=== PATIENT | female | born 1940 | race Caucasian/White ===

== ENCOUNTER 2016-09-07 07:20 | Emergency (ER) | payer MEDICARE, BC ==
[2016-09-07 07:47] VITALS: BP 147/98
--- NOTE | 2016-09-07 08:08 | EDM.PDOC ---
ED HISTORY OF PRESENT ILLNESS - General Chief Complaint: Neurological Problem Stated Complaint: DIZZY Time Seen by Provider: 09/07/16 08:03 Source: Reports: Patient, Family, RN notes reviewed History Limitations: Reports: No limitations - History of Present Illness INITIAL COMMENTS - FREE TEXT/NARRATIVE: 75-year-old female presents with Complains of dizziness described as spinning associated with nausea, started yesterday morning. Denies diplopia, dysarthria, difficulty swallowing, weakness. Surgery in [address] 3 days ago involving laminectomy L2-3 disc right by patient No fever sweats or chills 10 days ago started on gabapentin 100 mg 3 times daily Symptom Onset Date: 09/06/16 Severity: moderate Worsens with: Reports: Other (Worsens with change of position) - Related Data Allergies/ADRs: Allergies Allergy/AdvReac Type Severity Reaction Status Date / Time oxycodone HCl [From Roxicet] Allergy Severe Difficulty Verified 09/07/16 07:36 Breathing acetaminophen [From Roxicet] Allergy Shortness Verified 09/07/16 07:36 of Breath amlodipine besylate Allergy Pain Verified 09/07/16 07:36 [From Norvasc] hydromorphone [From Dilaudid] Allergy Swelling Verified 09/07/16 07:36 oxycodone [From Roxicet] Allergy Shortness Verified 09/07/16 07:36 of Breath propranolol HCl Allergy Shortness Verified 09/07/16 07:36 [From Inderal LA] of Breath quinidine Allergy Rash Verified 09/07/16 07:36 verapamil Allergy Ringing in Verified 09/07/16 07:36 the Ears amoxicillin [Amoxicillin] AdvReac Nausea Verified 09/07/16 07:36 ibuprofen AdvReac Anxiety Verified 09/07/16 07:36 lisinopril AdvReac Pain Verified 09/07/16 07:36 omeprazole AdvReac Diarrhea Verified 09/07/16 07:36 tramadol AdvReac Anxiety Verified 09/07/16 07:36 magnesium stearate Allergy Severe Difficulty Uncoded 09/07/16 07:36 Breathing cats Allergy Blurred Uncoded 09/07/16 07:36 Vision orange juice Allergy Diarrhea Uncoded 09/07/16 07:36 Home Meds: Home Meds Acetaminophen [Tylenol] 650 mg PO TID 07/15/16 [History] Morphine [Morphine 10 MG/5 ML] 2.5 ml PO QID 07/15/16 [History] Furosemide [Lasix Oral Soln] 09/07/16 [History] Gabapentin [Gabapentin] 09/07/16 [History] Past Medical History HEENT History: Reports: Hard of hearing, Impaired vision, Macular degeneration Cardiovascular History: Reports: Hypertension Respiratory History: Reports: None Gastrointestinal History: Reports: GERD, Irritable bowel syndrome Genitourinary History: Reports: Renal calculus Other Genitourinary History: kidney cancer [employer]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 OB/BYN History: uterine cancer Musculoskeletal History: Reports: Back pain, chronic Neurological History: Reports: None Psychiatric History: Reports: None Endocrine/Metabolic History: Reports: None Hematologic History: Reports: None Immunologic History: Reports: None Oncologic (Cancer) History: Reports: Uterine, Other (see below) Other Oncologic History: KIDNEY CANCER Dermatologic History: Reports: Cellulitis, Other (see below) Other Dermatologic History: cellulitis left leg - Infectious Disease History Infectious Disease History: Reports: Chicken pox, Measles, Mumps, Rubella, Shingles - Past Surgical History GI Surgical History: Reports: Cholecystectomy, Colonoscopy Female Surgical History: Reports: Hysterectomy Social & Family History - Family History HEENT: Reports: Cataract, Glaucoma, Impaired vision, Macular degeneration Cardiac: Reports: CAD, Hypertension, [place], Pacemaker Respiratory: Reports: None GI: Reports: GERD : Reports: None OBGYN: Reports: None Musculoskeletal: Reports: None Neurological: Reports: CVA Psychiatric: Reports: None Endocrine/Metabolic: Reports: Diabetes, type II Hematologic: Reports: None Immunologic: Reports: None Dermatologic: Reports: None Oncologic: Reports: Colon, Uterine - Tobacco Use Smoking Status *Q: Never Smoker Second Hand Smoke Exposure: No - Caffeine Use Caffeine Use: Reports: None - Alcohol Use Days Per Week of Alcohol Use: 0 - Recreational Drug Use Recreational Drug Use: No ED ROS GENERAL - Review of Systems Review Of Systems: See Below Constitutional: Reports: no symptoms HEENT: Reports: Vertigo, Other (History of chronic tinnitus) Respiratory: Reports: no symptoms Cardiovascular: Reports: No symptoms Endocrine: Reports: no symptoms GI/Abdominal: Reports: No symptoms : Reports: no symptoms Musculoskeletal: Reports: leg pain Skin: Reports: dryness Neurological: Reports: dizziness Psychiatric: Reports: No symptoms ED EXAM, GENERAL - Physical Exam Exam: See Below Exam Limited By: No limitations General Appearance: alert, WD/WN, no apparent distress Eye Exam: bilateral eye: EOMI, other (Pupils small round react to light, no nystagmus) Ears: normal external exam, other (Patient has chronic left tympanic membrane perforation) Ear Exam: right ear: TM normal, left ear: TM perforation, bilateral ear: auricle normal, canal normal Nose: normal inspection Throat/Mouth: Normal inspection, Normal lips, Normal gums, Normal oropharynx, Normal voice, No airway compromise Head: atraumatic Neck: normal inspection, supple, non-tender Respiratory/Chest: no respiratory distress, lungs clear, normal breath sounds Cardiovascular: regular rate, rhythm Extremities: pedal edema Neurological: alert, oriented, CN II-XII intact, normal cognition Psychiatric: normal affect, normal mood Skin Exam: Warm, Dry, Intact, Normal color Lymphatic: no adenopathy Course - Vital Signs Text/Narrative:: Reviewed CBC and BMP, no significant abnormality. Diagnosis acute vertigo, differential diagnosis includes adverse affect from gabapentin, benign positional paroxysmal vertigo, doubt Mnire's disease, doubt acute labyrinthitis, or vestibular neuronitis. Discussed with patient and , discontinue gabapentin, cut morphine dose by 25%. Followup with Dr. Munson next week. Last Recorded V/S: Last Vital Signs Temp 98.1 F 09/07/16 07:46 Pulse 103 H 09/07/16 07:46 Resp 14 09/07/16 07:46 BP 147/98 H 09/07/16 07:46 Pulse Ox 96 09/07/16 07:46 - Orders/Labs/Meds Labs: Laboratory Tests 09/07/16 09/07/16 Range/Units 08:16 08:16 WBC 11.4 H (4.5-11.0) K/uL RBC 4.69 (3.30-5.50) M/uL Hgb 13.0 (12.0-15.0) g/dL Hct 41.7 (36.0-48.0) % MCV 89 (80-98) fL MCH 28 (27-31) pg MCHC 31 L (32-36) % Plt Count 222 (150-400) K/uL Neut % (Auto) 78 H (36-66) % Lymph % (Auto) 12 L (24-44) % [place] % (Auto) 9 H (2-6) % Eos % (Auto) 2 (2-4) % Baso % (Auto) 0 (0-1) % Sodium 143 (140-148) mmol/L Potassium 4.0 (3.6-5.2) mmol/L Chloride 107 (100-108) mmol/L Carbon Dioxide 28 (21-32) mmol/L Anion Gap 7.8 (5.0-14.0) mmol/L BUN 17 (7-18) mg/dL Creatinine 1.0 (0.6-1.0) mg/dL Est Cr Clr Drug Dosing 38.44 mL/min Estimated GFR (MDRD) 54 L (>60) Glucose 196 H (74-106) mg/dL Calcium 8.8 (8.5-10.1) mg/dL Departure - Departure Time of Disposition: 08:46 Disposition: Home, Self-Care 01 Condition: good Clinical Impression: Vertigo Forms: ED Department Discharge Additional Instructions: Stop gabapentin. Decreased morphine dose by 25%. C. Dr. Munson next week.
== END 2016-09-07 09:14 | disposition home or self-care (01) ==
LOC: JP.ED 07:20
DX: R42 Dizziness and giddiness (principal); H54.7 Unspecified visual loss; Z88.5 Allergy status to narcotic agent; Z79.899 Other long term (current) drug therapy; Z88.8 Allergy status to other drugs, medicaments and biological substances; Z90.710 Acquired absence of both cervix and uterus
CPT/HCPCS: 36415; 80048; 85025; 99283; 99284

== ENCOUNTER 2017-07-24 17:03 | Inpatient (IN) | payer MEDICARE, BC ==
--- NOTE | 2017-07-24 17:39 | EDM.PDOC ---
ED HPI GENERAL MEDICAL PROBLEM - General Chief Complaint: Respiratory Problem Stated Complaint: MEDICAL Time Seen by Provider: 07/24/17 17:34 Source of Information: Reports: Patient History Limitations: Reports: No Limitations - History of Present Illness INITIAL COMMENTS - FREE TEXT/NARRATIVE: pt arrived with increased sob. She states this afternoon this became very severe. She had surgery in Jul on her back-- She was actually discharged on Jul !. She developed a staph infection on her back and was placed on antibiotics. She then developd cdiff and is still on vanomycin for that. In the last few days she has had increased sob. She has markedly swollen legs and the are weeping. She is not on any blood thinners. Onset: Gradual Duration: Day(s):, Getting Worse Location: Reports: Chest Associated Symptoms: Reports: Cough, Loss of Appetite, Shortness of Breath, Other ( She has coughed up some blood. ) Left Lower Back Pain Score (Numeric/FACES): 5 - Related Data Allergies Allergy/AdvReac Type Severity Reaction Status Date / Time oxycodone HCl [From Roxicet] Allergy Severe Difficulty Verified 09/07/16 07:36 Breathing acetaminophen [From Roxicet] Allergy Shortness Verified 09/07/16 07:36 of Breath amlodipine besylate Allergy Pain Verified 09/07/16 07:36 [From Norvasc] hydromorphone [From Dilaudid] Allergy Swelling Verified 09/07/16 07:36 oxycodone [From Roxicet] Allergy Shortness Verified 09/07/16 07:36 of Breath propranolol HCl Allergy Shortness Verified 09/07/16 07:36 [From Inderal LA] of Breath quinidine Allergy Rash Verified 09/07/16 07:36 verapamil Allergy Ringing in Verified 09/07/16 07:36 the Ears amoxicillin [Amoxicillin] AdvReac Nausea Verified 09/07/16 07:36 ibuprofen AdvReac Anxiety Verified 09/07/16 07:36 lisinopril AdvReac Pain Verified 09/07/16 07:36 omeprazole AdvReac Diarrhea Verified 09/07/16 07:36 tramadol AdvReac Anxiety Verified 09/07/16 07:36 magnesium stearate Allergy Severe Difficulty Uncoded 09/07/16 07:36 Breathing cats Allergy Blurred Uncoded 09/07/16 07:36 Vision orange juice Allergy Diarrhea Uncoded 09/07/16 07:36 Home Meds: Home Meds Acetaminophen [Tylenol] 650 mg PO TID 07/15/16 [History] Morphine [Morphine 10 MG/5 ML] 2.5 ml PO QID 07/15/16 [History] Vancomycin 250 mg PO QID 07/24/17 [History] Past Medical History HEENT History: Reports: Hard of Hearing, Impaired Vision, Macular Degeneration Cardiovascular History: Reports: Hypertension Respiratory History: Reports: None Gastrointestinal History: Reports: GERD, Irritable Bowel Syndrome Genitourinary History: Reports: Renal Calculus Other Genitourinary History: 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 OB/BYN History: uterine cancer Musculoskeletal History: Reports: Back Pain, Chronic Neurological History: Reports: None Psychiatric History: Reports: None Endocrine/Metabolic History: Reports: None Hematologic History: Reports: None Immunologic History: Reports: None Oncologic (Cancer) History: Reports: Uterine, Other (See Below) Other Oncologic History: KIDNEY CANCER Dermatologic History: Reports: Cellulitis, Other (See Below) Other Dermatologic History: cellulitis left leg - Infectious Disease History Infectious Disease History: Reports: Chicken Pox, Measles, Mumps - Past Surgical History Musculoskeletal Surgical History: Reports: Other (See Below) Other Musculoskeletal Surgeries/Procedures:: back surgery on 06/05/17 in [facility] Social & Family History - Family History HEENT: Reports: Cataract, Glaucoma, Impaired Vision, Macular Degeneration Cardiac: Reports: CAD, Hypertension, [place], Pacemaker Respiratory: Reports: None GI: Reports: GERD : Reports: None OBGYN: Reports: None Musculoskeletal: Reports: None Neurological: Reports: CVA Psychiatric: Reports: None Endocrine/Metabolic: Reports: Diabetes, type II Hematologic: Reports: None Immunologic: Reports: None Dermatologic: Reports: None Oncologic: Reports: Colon, Uterine - Tobacco Use Smoking Status *Q: Never Smoker Second Hand Smoke Exposure: No - Caffeine Use Caffeine Use: Reports: Soda - Alcohol Use Days Per Week of Alcohol Use: 0 - Recreational Drug Use Recreational Drug Use: No ED ROS GENERAL - Review of Systems Review Of Systems: See Below Constitutional: Reports: No Symptoms HEENT: Reports: No Symptoms Respiratory: Reports: Shortness of Breath, Other (Pt has had marked sob. It was much worse today. ) Cardiovascular: Reports: No Symptoms, Dyspnea on Exertion, Edema Endocrine: Reports: No Symptoms GI/Abdominal: Reports: No Symptoms : Reports: No Symptoms Musculoskeletal: Reports: No Symptoms Skin: Reports: No Symptoms ED EXAM, GENERAL - Physical Exam Exam: See Below Free Text/Narrative:: pt arrived with increased sob. She has marked swelling of her ankles and she has weeping. She presently has Cdiff. Exam Limited By: No Limitations General Appearance: Alert, Anxious, Mild Distress Ears: Normal TMs Nose: Normal Inspection Throat/Mouth: Normal Inspection Head: Atraumatic Neck: Normal Inspection Respiratory/Chest: Decreased Breath Sounds, Rales Cardiovascular: Regular Rate, Rhythm GI/Abdominal: Soft, Non-Tender Extremities: Pedal Edema, Other ( Pt ratliff weeping in both legs. ) Neurological: Alert, Oriented, Normal Cognition Course - Vital Signs Last Recorded V/S: Last Vital Signs Temp 36.3 C 07/24/17 17:08 Pulse 105 H 07/24/17 17:37 Resp 24 H 07/24/17 17:37 BP 185/116 H 07/24/17 17:37 Pulse Ox 98 07/24/17 17:37 - Orders/Labs/Meds Orders: Active Orders 24 hr Category Date Time Status Chest 1V Frontal [CR] Stat Exams 07/24/17 17:33 Taken CLOSTRIDIUM DIFFICILE BY PCR [RM] Stat Lab 07/24/17 17:32 Uncollected CRP [C-REACTIVE PROTEIN] [CHEM] Stat Lab 07/24/17 17:25 Received CULTURE URINE [RM] Stat Lab 07/24/17 18:21 Uncollected LACTIC ACID [CHEM] Stat Lab 07/24/17 17:25 Received PRO B-TYPE NATRIUR PEPT,BNPPRO [CHEM] Urgent Lab 07/24/17 17:58 Ordered Sodium Chloride 0.9% [Saline Flush] Med 07/24/17 18:01 Active 10 ml FLUSH ASDIRECTED PRN Saline Lock Insert [OM.PC] Routine Oth 07/24/17 18:01 Ordered Medication Orders Sodium Chloride (Saline Flush) 10 ml FLUSH ASDIRECTED PRN PRN Reason: Keep Vein Open Labs: Laboratory Tests 07/24/17 07/24/17 07/24/17 Range/Units 17:25 17:25 18:02 WBC 8.7 (4.5-11.0) K/uL RBC 3.84 (3.30-5.50) M/uL Hgb 10.3 L D (12.0-15.0) g/dL Hct 35.0 L (36.0-48.0) % MCV 91 (80-98) fL MCH 27 (27-31) pg MCHC 29 L (32-36) % Plt Count 172 (150-400) K/uL Neut % (Auto) 73 H (36-66) % Lymph % (Auto) 16 L (24-44) % [place] % (Auto) 8 H (2-6) % Eos % (Auto) 3 (2-4) % Baso % (Auto) 0 (0-1) % Sodium 149 H (140-148) mmol/L Potassium 4.1 (3.6-5.2) mmol/L Chloride 112 H (100-108) mmol/L Carbon Dioxide 29 (21-32) mmol/L Anion Gap 12.1 (5.0-14.0) mmol/L BUN 23 H (7-18) mg/dL Creatinine 1.2 H (0.6-1.0) mg/dL Est Cr Clr Drug Dosing 34.44 mL/min Estimated GFR (MDRD) 44 L (>60) Glucose 116 H (74-106) mg/dL Calcium 9.1 (8.5-10.1) mg/dL Total Bilirubin 0.7 D (0.2-1.0) mg/dL AST 37 D (15-37) U/L ALT 44 D (12-78) U/L Alkaline Phosphatase 173 H D (46-116) U/L Troponin I 0.035 (0.000-0.056) ng/mL Total Protein 6.5 (6.4-8.2) g/dL Albumin 2.6 L (3.4-5.0) g/dL Globulin 3.9 H (2.3-3.5) g/dL Albumin/Globulin Ratio 0.7 L (1.2-2.2) Urine Color Urine Appearance Urine pH (4.5-8.0) Ur Specific [place] (1.008-1.030) Urine Protein (NEGATIVE) mg/dL Urine Glucose (UA) (NEGATIVE) mg/dL Urine Ketones (NEGATIVE) mg/dL Urine Occult Blood (NEGATIVE) Urine Nitrite (NEGATIVE) Urine Bilirubin (NEGATIVE) Urine Urobilinogen (NORMAL) mg/dL Ur Leukocyte Esterase (NEGATIVE) Urine RBC (0-5) Urine WBC (0-5) Ur Epithelial Cells Amorphous Sediment Urine Bacteria Urine Mucus 07/24/17 Range/Units 18:15 WBC (4.5-11.0) K/uL RBC (3.30-5.50) M/uL Hgb (12.0-15.0) g/dL Hct (36.0-48.0) % MCV (80-98) fL MCH (27-31) pg MCHC (32-36) % Plt Count (150-400) K/uL Neut % (Auto) (36-66) % Lymph % (Auto) (24-44) % [place] % (Auto) (2-6) % Eos % (Auto) (2-4) % Baso % (Auto) (0-1) % Sodium (140-148) mmol/L Potassium (3.6-5.2) mmol/L Chloride (100-108) mmol/L Carbon Dioxide (21-32) mmol/L Anion Gap (5.0-14.0) mmol/L BUN (7-18) mg/dL Creatinine (0.6-1.0) mg/dL Est Cr Clr Drug Dosing mL/min Estimated GFR (MDRD) (>60) Glucose (74-106) mg/dL Calcium (8.5-10.1) mg/dL Total Bilirubin (0.2-1.0) mg/dL AST (15-37) U/L ALT (12-78) U/L Alkaline Phosphatase (46-116) U/L Troponin I (0.000-0.056) ng/mL Total Protein (6.4-8.2) g/dL Albumin (3.4-5.0) g/dL Globulin (2.3-3.5) g/dL Albumin/Globulin Ratio (1.2-2.2) Urine Color Yellow Urine Appearance Slightly cloudy Urine pH 5.0 (4.5-8.0) Ur Specific [place] 1.020 (1.008-1.030) Urine Protein 100 H (NEGATIVE) mg/dL Urine Glucose (UA) Normal (NEGATIVE) mg/dL Urine Ketones Negative (NEGATIVE) mg/dL Urine Occult Blood Large (NEGATIVE) Urine Nitrite Negative (NEGATIVE) Urine Bilirubin Negative (NEGATIVE) Urine Urobilinogen Normal (NORMAL) mg/dL Ur Leukocyte Esterase Small (NEGATIVE) Urine RBC 10-20 H (0-5) Urine WBC 5-10 H (0-5) Ur Epithelial Cells Few Amorphous Sediment Few Urine Bacteria Moderate Urine Mucus Few Meds: Medications Generic Name Dose Route Start Last Admin Trade Name Freq PRN Reason Stop Dose Admin Sodium Chloride 10 ml 07/24/17 18:01 Saline Flush FLUSH ASDIRECTED PRN Keep Vein Open Discontinued Medications Generic Name Dose Route Start Last Admin Trade Name Freq PRN Reason Stop Dose Admin Furosemide 60 mg 07/24/17 18:01 Lasix IVPUSH 07/24/17 18:02 ONETIME ONE - Re-Assessments/Exams Free Text/Narrative Re-Assessment/Exam: 07/24/17 18:22 CHEST XRAY LOOKED LIKE THE PT HAD SOME PULMONARY EDEMA. sHE WAS GIVEN LASIX 60 MG IV. hER URINE LOOKED INFECTED AND THAT WAS CULTURED. 07/24/17 18:23 Departure - Departure Time of Disposition: 18:24 Disposition: Admitted As Inpatient 66 Condition: Fair Clinical Impression: Clostridium difficile diarrhea, CHF (congestive heart failure) - Discharge Information Referrals: PCP,None [Primary Care Provider] - Forms: ED Department Discharge Care Plan Goals: ADMIT TO [facility] - My Orders Last 24 Hours: My Active Orders 07/24/17 17:25 CRP [C-REACTIVE PROTEIN] [CHEM] Stat LACTIC ACID [CHEM] Stat 07/24/17 17:32 CLOSTRIDIUM DIFFICILE BY PCR [RM] Stat 07/24/17 17:33 Chest 1V Frontal [CR] Stat 07/24/17 17:58 PRO B-TYPE NATRIUR PEPT,BNPPRO [CHEM] Urgent 07/24/17 18:01 Sodium Chloride 0.9% [Saline Flush] 10 ml FLUSH ASDIRECTED PRN Saline Lock Insert [OM.PC] Routine 07/24/17 18:21 CULTURE URINE [RM] Stat - Assessment/Plan Last 24 Hours: My Active Orders 07/24/17 17:25 CRP [C-REACTIVE PROTEIN] [CHEM] Stat LACTIC ACID [CHEM] Stat 07/24/17 17:32 CLOSTRIDIUM DIFFICILE BY PCR [RM] Stat 07/24/17 17:33 Chest 1V Frontal [CR] Stat 07/24/17 17:58 PRO B-TYPE NATRIUR PEPT,BNPPRO [CHEM] Urgent 07/24/17 18:01 Sodium Chloride 0.9% [Saline Flush] 10 ml FLUSH ASDIRECTED PRN Saline Lock Insert [OM.PC] Routine 07/24/17 18:21 CULTURE URINE [RM] Stat
[2017-07-24] MEDS ORDERED: Sodium Chloride 0.9% 10 ML Syringe FLUSH PRN (18:01)
[2017-07-24] MEDS ORDERED: Furosemide 40 MG/4 ML VIAL IVPUSH ONE (18:01)
--- NOTE | 2017-07-24 19:29 | PCM.HP ---
H&P History of Present Illness - General Date of Service: 07/24/17 Admit Problem/Dx: Admission Diagnosis/Problem Admission Diagnosis/Problem CHF, Congestive heart failure Source of Information: Patient, Family, Provider History Limitations: Reports: No Limitations - History of Present Illness Initial Comments - Free Text/Narative: Anne presents to the emergency room today with progressive shortness of breath. Symptoms have been present for a couple of weeks but have been much worse the past 2 days. She is short of breath with any activity. She has noticed increasing orthopnea over the past week or so. She has not experienced PND. Her legs have been more and more swollen over the past 2-3 weeks. She's not aware of any fevers and has not had much of a cough. No reports of chest pain or chest tightness. She does note that she was taken off furosemide because of dehydration about 3 weeks ago. She is being treated for Clostridium difficile infection and continues to have some diarrhea although it's been slowly getting better. No complaints of abdominal pain. Workup in the emergency room was suggestive of congestive heart failure with pulmonary edema noted on chest x-ray as well as a significantly elevated BNP. Clinical examination also consistent with congestive heart failure. She will be admitted for further management. Left Lower Back Pain Score (Numeric/FACES): 5 - Related Data Allergies/Adverse Reactions: Allergies Allergy/AdvReac Type Severity Reaction Status Date / Time oxycodone HCl [From Roxicet] Allergy Severe Difficulty Verified 09/07/16 07:36 Breathing acetaminophen [From Roxicet] Allergy Shortness Verified 09/07/16 07:36 of Breath amlodipine besylate Allergy Pain Verified 09/07/16 07:36 [From Norvasc] hydromorphone [From Dilaudid] Allergy Swelling Verified 09/07/16 07:36 oxycodone [From Roxicet] Allergy Shortness Verified 09/07/16 07:36 of Breath propranolol HCl Allergy Shortness Verified 09/07/16 07:36 [From Inderal LA] of Breath quinidine Allergy Rash Verified 09/07/16 07:36 verapamil Allergy Ringing in Verified 09/07/16 07:36 the Ears amoxicillin [Amoxicillin] AdvReac Nausea Verified 09/07/16 07:36 ibuprofen AdvReac Anxiety Verified 09/07/16 07:36 lisinopril AdvReac Pain Verified 09/07/16 07:36 omeprazole AdvReac Diarrhea Verified 09/07/16 07:36 tramadol AdvReac Anxiety Verified 09/07/16 07:36 magnesium stearate Allergy Severe Difficulty Uncoded 09/07/16 07:36 Breathing cats Allergy Blurred Uncoded 09/07/16 07:36 Vision orange juice Allergy Diarrhea Uncoded 09/07/16 07:36 Home Medications: Home Meds Acetaminophen [Tylenol] 650 mg PO TID 07/15/16 [History] Morphine [Morphine 10 MG/5 ML] 2.5 ml PO QID 07/15/16 [History] Vancomycin 250 mg PO QID 07/24/17 [History] Past Medical History HEENT History: Reports: Hard of Hearing, Impaired Vision, Macular Degeneration Cardiovascular History: Reports: Hypertension Respiratory History: Reports: None Gastrointestinal History: Reports: GERD, Irritable Bowel Syndrome Genitourinary History: Reports: Renal Calculus Other Genitourinary History: kidney 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 OB/BYN History: uterine cancer Musculoskeletal History: Reports: Back Pain, Chronic Neurological History: Reports: None Psychiatric History: Reports: None Endocrine/Metabolic History: Reports: None Hematologic History: Reports: None Immunologic History: Reports: None Oncologic (Cancer) History: Reports: Uterine, Other (See Below) Other Oncologic History: KIDNEY CANCER Dermatologic History: Reports: Cellulitis, Other (See Below) Other Dermatologic History: cellulitis left leg - Infectious Disease History Infectious Disease History: Reports: Chicken Pox, Measles, Mumps - Past Surgical History Musculoskeletal Surgical History: Reports: Other (See Below) Other Musculoskeletal Surgeries/Procedures:: back surgery on 06/05/17 in [facility] Social & Family History - Family History HEENT: Reports: Cataract, Glaucoma, Impaired Vision, Macular Degeneration Cardiac: Reports: CAD, Hypertension, DE, Pacemaker Respiratory: Reports: None GI: Reports: GERD : Reports: None OBGYN: Reports: None Musculoskeletal: Reports: None Neurological: Reports: CVA Psychiatric: Reports: None Endocrine/Metabolic: Reports: Diabetes, type II Hematologic: Reports: None Immunologic: Reports: None Dermatologic: Reports: None Oncologic: Reports: Colon, Uterine - Tobacco Use Smoking Status *Q: Never Smoker Second Hand Smoke Exposure: No - Caffeine Use Caffeine Use: Reports: Soda - Alcohol Use Days Per Week of Alcohol Use: 0 - Recreational Drug Use Recreational Drug Use: No H&P Review of Systems - Review of Systems: Review Of Systems: See Below Free Text/Narrative: A complete 12 point review of systems was obtained. Pertinent positives and negatives are noted in the history of present illness. All other systems were reviewed and were negative except as noted. Exam - Exam Exam: See Below - Vital Signs Vital Signs: Last Vital Signs Temp 36.3 C 07/24/17 17:08 Pulse 105 H 07/24/17 17:37 Resp 24 H 07/24/17 17:37 BP 177/89 H 07/24/17 18:22 Pulse Ox 98 07/24/17 17:37 Weight: 127.006 kg - Exam Quality Assessment: Supplemental Oxygen General: Alert, Oriented, Cooperative. No: Mild Distress HEENT: Conjunctiva Clear, Mucosa Moist & [place]. No: Scleral Icterus Neck: Supple, Trachea Midline, JVD. No: Lymphadenopathy Lungs: Normal Respiratory Effort, Decreased Breath Sounds (both bases), Crackles (both bases). No: Wheezing Cardiovascular: Regular Rhythm, Tachycardia, Systolic Murmur (diffuse CANDY) GI/Abdominal Exam: Normal Bowel Sounds, Soft, Non-Tender, No Distention Back Exam: Normal Inspection. No: Full Range of Motion Extremities: Pedal Edema (pitting edema both legs to the knee and some posterior edema in the thighs), Other (both legs wrapped with Coban to the knee) . No: Increased Warmth Skin: Warm, Dry. No: Rash Neuro Extensive - Mental Status: Alert, Oriented x3, Nl Response to Commands Neuro Extensive - Motor, Sensory, Reflexes: CN II-XII Intact. No: Dysarthria, Abnormal Motor, Tremor Psychiatric: Alert, Normal Affect - Patient Data Lab Results Last 24 hrs: Laboratory Results - last 24 hr 07/24/17 07/24/17 07/24/17 Range/Units 17:25 17:25 17:25 WBC 8.7 (4.5-11.0) K/uL RBC 3.84 (3.30-5.50) M/uL Hgb 10.3 L D (12.0-15.0) g/dL Hct 35.0 L (36.0-48.0) % MCV 91 (80-98) fL MCH 27 (27-31) pg MCHC 29 L (32-36) % Plt Count 172 (150-400) K/uL Neut % (Auto) 73 H (36-66) % Lymph % (Auto) 16 L (24-44) % [place] % (Auto) 8 H (2-6) % Eos % (Auto) 3 (2-4) % Baso % (Auto) 0 (0-1) % Sodium 149 H (140-148) mmol/L Potassium 4.1 (3.6-5.2) mmol/L Chloride 112 H (100-108) mmol/L Carbon Dioxide 29 (21-32) mmol/L Anion Gap 12.1 (5.0-14.0) mmol/L BUN 23 H (7-18) mg/dL Creatinine 1.2 H (0.6-1.0) mg/dL Est Cr Clr Drug Dosing 34.44 mL/min Estimated GFR (MDRD) 44 L (>60) Glucose 116 H (74-106) mg/dL Lactic Acid 1.4 (0.4-2.0) mmol/L Calcium 9.1 (8.5-10.1) mg/dL Total Bilirubin 0.7 D (0.2-1.0) mg/dL AST 37 D (15-37) U/L ALT 44 D (12-78) U/L Alkaline Phosphatase 173 H D (46-116) U/L Troponin I (0.000-0.056) ng/mL C-Reactive Protein (0.0-0.3) mg/dL NT-Pro-B Natriuret Pep (5-450) pg/mL Total Protein 6.5 (6.4-8.2) g/dL Albumin 2.6 L (3.4-5.0) g/dL Globulin 3.9 H (2.3-3.5) g/dL Albumin/Globulin Ratio 0.7 L (1.2-2.2) Urine Color Urine Appearance Urine pH (4.5-8.0) Ur Specific [place] (1.008-1.030) Urine Protein (NEGATIVE) mg/dL Urine Glucose (UA) (NEGATIVE) mg/dL Urine Ketones (NEGATIVE) mg/dL Urine Occult Blood (NEGATIVE) Urine Nitrite (NEGATIVE) Urine Bilirubin (NEGATIVE) Urine Urobilinogen (NORMAL) mg/dL Ur Leukocyte Esterase (NEGATIVE) Urine RBC (0-5) Urine WBC (0-5) Ur Epithelial Cells Amorphous Sediment Urine Bacteria Urine Mucus 07/24/17 07/24/17 07/24/17 Range/Units 17:25 17:58 18:02 WBC (4.5-11.0) K/uL RBC (3.30-5.50) M/uL Hgb (12.0-15.0) g/dL Hct (36.0-48.0) % MCV (80-98) fL MCH (27-31) pg MCHC (32-36) % Plt Count (150-400) K/uL Neut % (Auto) (36-66) % Lymph % (Auto) (24-44) % [place] % (Auto) (2-6) % Eos % (Auto) (2-4) % Baso % (Auto) (0-1) % Sodium (140-148) mmol/L Potassium (3.6-5.2) mmol/L Chloride (100-108) mmol/L Carbon Dioxide (21-32) mmol/L Anion Gap (5.0-14.0) mmol/L BUN (7-18) mg/dL Creatinine (0.6-1.0) mg/dL Est Cr Clr Drug Dosing mL/min Estimated GFR (MDRD) (>60) Glucose (74-106) mg/dL Lactic Acid (0.4-2.0) mmol/L Calcium (8.5-10.1) mg/dL Total Bilirubin (0.2-1.0) mg/dL AST (15-37) U/L ALT (12-78) U/L Alkaline Phosphatase (46-116) U/L Troponin I 0.035 (0.000-0.056) ng/mL C-Reactive Protein 0.59 H (0.0-0.3) mg/dL NT-Pro-B Natriuret Pep 25733 H (5-450) pg/mL Total Protein (6.4-8.2) g/dL Albumin (3.4-5.0) g/dL Globulin (2.3-3.5) g/dL Albumin/Globulin Ratio (1.2-2.2) Urine Color Urine Appearance Urine pH (4.5-8.0) Ur Specific [place] (1.008-1.030) Urine Protein (NEGATIVE) mg/dL Urine Glucose (UA) (NEGATIVE) mg/dL Urine Ketones (NEGATIVE) mg/dL Urine Occult Blood (NEGATIVE) Urine Nitrite (NEGATIVE) Urine Bilirubin (NEGATIVE) Urine Urobilinogen (NORMAL) mg/dL Ur Leukocyte Esterase (NEGATIVE) Urine RBC (0-5) Urine WBC (0-5) Ur Epithelial Cells Amorphous Sediment Urine Bacteria Urine Mucus 07/24/17 Range/Units 18:15 WBC (4.5-11.0) K/uL RBC (3.30-5.50) M/uL Hgb (12.0-15.0) g/dL Hct (36.0-48.0) % MCV (80-98) fL MCH (27-31) pg MCHC (32-36) % Plt Count (150-400) K/uL Neut % (Auto) (36-66) % Lymph % (Auto) (24-44) % [place] % (Auto) (2-6) % Eos % (Auto) (2-4) % Baso % (Auto) (0-1) % Sodium (140-148) mmol/L Potassium (3.6-5.2) mmol/L Chloride (100-108) mmol/L Carbon Dioxide (21-32) mmol/L Anion Gap (5.0-14.0) mmol/L BUN (7-18) mg/dL Creatinine (0.6-1.0) mg/dL Est Cr Clr Drug Dosing mL/min Estimated GFR (MDRD) (>60) Glucose (74-106) mg/dL Lactic Acid (0.4-2.0) mmol/L Calcium (8.5-10.1) mg/dL Total Bilirubin (0.2-1.0) mg/dL AST (15-37) U/L ALT (12-78) U/L Alkaline Phosphatase (46-116) U/L Troponin I (0.000-0.056) ng/mL C-Reactive Protein (0.0-0.3) mg/dL NT-Pro-B Natriuret Pep (5-450) pg/mL Total Protein (6.4-8.2) g/dL Albumin (3.4-5.0) g/dL Globulin (2.3-3.5) g/dL Albumin/Globulin Ratio (1.2-2.2) Urine Color Yellow Urine Appearance Slightly cloudy Urine pH 5.0 (4.5-8.0) Ur Specific [place] 1.020 (1.008-1.030) Urine Protein 100 H (NEGATIVE) mg/dL Urine Glucose (UA) Normal (NEGATIVE) mg/dL Urine Ketones Negative (NEGATIVE) mg/dL Urine Occult Blood Large (NEGATIVE) Urine Nitrite Negative (NEGATIVE) Urine Bilirubin Negative (NEGATIVE) Urine Urobilinogen Normal (NORMAL) mg/dL Ur Leukocyte Esterase Small (NEGATIVE) Urine RBC 10-20 H (0-5) Urine WBC 5-10 H (0-5) Ur Epithelial Cells Few Amorphous Sediment Few Urine Bacteria Moderate Urine Mucus Few Result Diagrams: 07/24/17 17:25 07/24/17 17:25 Imaging Impressions Last 24 hrs: CXR - images personally reviewed - there are diffuse interstitial infiltrates c/ w pulmonary edema. There is cardiomegally. Probable small bilateral effusions. No obvious infiltrate *Q Meaningful Use (ADM) - VTE *Q VTE Criteria *Q: - VTE Risk Assess *Q Each Risk Factor Represents 1 Point: Swollen Legs, Current, Obesity ( BMI > 25 kg/m2), Congestive heart failure (CHF) Total Score 1 Point Risk Factors: 3 Each Risk Factor Represents 2 Points: Malignancy (present or previous) Total Score 2 Point Risk Factors: 2 Each Risk Factor Represents 3 Points: Age 75 Years or Greater Total Score 3 Point Risk Factors: 3 Each Risk Factor Represents 5 Points: None Total Score 5 Point Risk Factors: 0 Venous Thromboembolism Risk Factor Score *Q: 8 - Stroke *Q Stroke Criteria *Q: - AMI *Q AMI Criteria *Q: - Problem List (1) Diastolic CHF, acute on chronic SNOMED Code(s): 949612413 ICD Code: I50.33 - ACUTE ON CHRONIC DIASTOLIC (CONGESTIVE) HEART FAILURE Status: Acute Current Visit: Yes (2) CKD (chronic kidney disease), stage III SNOMED Code(s): 195162631 ICD Code: N18.3 - CHRONIC KIDNEY DISEASE, STAGE 3 (MODERATE) Status: Chronic Current Visit: Yes (3) Clostridium difficile diarrhea SNOMED Code(s): 7860104529728 ICD Code: A04.72 - ENTEROCOLITIS D/T CLOSTRIDIUM DIFFICILE, NOT SPCF RECUR Status: Acute Current Visit: Yes Problem List Initiated/Reviewed/Updated: Yes Orders Last 24hrs: Active Orders 24 hr Category Date Time Status Patient Status Manage Transfer [TRANSFER] Routine ADT 07/24/17 19:19 Ordered Insert Gomez Catheter [Insert Urinary Catheter] [OM.PC] Care 07/24/17 18:45 Ordered Q24H Urinary Catheter Assessment [RC] ASDIRECTED Care 07/24/17 18:41 Active Chest 1V Frontal [CR] Stat Exams 07/24/17 17:33 Taken CLOSTRIDIUM DIFFICILE BY PCR [RM] Stat Lab 07/24/17 17:32 Uncollected CULTURE URINE [RM] Stat Lab 07/24/17 18:00 Received Sodium Chloride 0.9% [Saline Flush] Med 07/24/17 18:01 Active 10 ml FLUSH ASDIRECTED PRN Saline Lock Insert [OM.PC] Routine Oth 07/24/17 18:01 Ordered Resuscitation Status Routine Resus Stat 07/24/17 19:21 Ordered Medication Orders Sodium Chloride (Saline Flush) 10 ml FLUSH ASDIRECTED PRN PRN Reason: Keep Vein Open Last Admin: 07/24/17 18:23 Dose: 10 ml Assessment/Plan Comment:: ASSESSMENT AND PLAN - Acute diastolic congestive heart failure - clinical examination, history and diagnostic workup all suggestive of congestive heart failure exacerbation. I suspect the causative event was discontinuation of her furosemide to 3 weeks ago. No recent symptoms to suggest anything to the contrary. Symptomatically improving with diuresis so far. She had a recent echocardiogram in [place] which reportedly showed normal left ventricular function but difficulty relaxing. She is not currently receiving a beta tobi or an ADRIANNA inhibitor. -Furosemide every 8 hours -Gomez catheter was placed for strict intake and output monitoring -Cardiac monitoring -Daily weights -Consider beta tobi once volume status improves CKD 3 - Creatinine mildly elevated from baseline. She will need close monitoring of her kidney function with her diuresis and heart failure. -Strict monitoring -Labs in the morning Clostridium difficile diarrhea - On treatment with vancomycin and has been for approximately 2 weeks. Still having some diarrhea. -Continue vancomycin 4 times a day -Contact precautions It is noted that the patient is allergic to magnesium stearate and is unable to take essentially all pills and capsules. She does well with liquid medications for the most part. Maintenance issues - - DVT prophylaxis - enoxaparin - GI prophylaxis - not indicated - Nutrition - low sodium diet - Gomez catheter - placed in the emergency room for strict intake and output monitoring CODE STATUS - full code Admission justification - This patient will be admitted for inpatient services and is medically appropriate meeting medical necessity for inpatient admission as outlined in my documentation. I reasonably expect the patient will require inpatient services that span a period time over 2 midnights. I reasonably expect this patient to be discharged or transferred within 96 hours after admission to the [facility]. Disposition - anticipate discharge home after the hospital stay Primary care physician - Dr. Pratik Tamez M.D.
[2017-07-24] MEDS ORDERED: Ondansetron 4 MG/2 ML SDV IV PRN (20:27)
[2017-07-24] MEDS ORDERED: Vancomycin 1,000 MG SDV ONE (21:23)
[2017-07-24] MEDS: Vancomycin 250 MG/5 ML ML Oral Solution PO SCH (22:01)
[2017-07-24] MEDS: Morphine 10 MG/0.5 ML Oral Syringe PO PRN (22:50)
[2017-07-25] MEDS ORDERED: Furosemide 40 MG/4 ML VIAL IVPUSH SCH (02:00)
[2017-07-25] MEDS: Morphine 10 MG/0.5 ML Oral Syringe PO PRN (03:15)
[2017-07-25] MEDS: Vancomycin 250 MG/5 ML ML Oral Solution PO SCH ×5 (06:00→21:13)
--- NOTE | 2017-07-25 09:24 | PCM.PN ---
- General Info Date of Service: 07/25/17 Functional Status: Reports: Pain Controlled, Tolerating Diet - Review of Systems General: Reports: Weakness Pulmonary: Reports: Shortness of Breath Cardiovascular: Reports: Edema Systems Review Comment:: No acute events overnight. Excellent response to diuresis with nearly 4 L removed. Symptomatically she does not feel much better and edema is essentially unchanged. Still requiring some supplemental oxygen. No complaints of chest pain but does feel short of breath even at rest. Lower extremities continue to weep with the excess fluid. No fevers. Heart rate has improved with diuresis as has her blood pressure. - Patient Data Vitals - Most Recent: Last Vital Signs Temp 36.9 C 07/25/17 07:00 Pulse 89 07/25/17 07:00 Resp 20 07/25/17 07:00 BP 177/98 H 07/25/17 07:00 Pulse Ox 97 07/25/17 07:00 Weight - Most Recent: 129.682 kg I&O - Last 24 Hours: Intake & Output 07/24/17 07/25/17 07/25/17 22:59 06:59 14:59 Intake Total 360 200 60 Output Total 2675 1500 Balance -2315 -1300 60 Lab Results Last 24 Hours: Laboratory Results - last 24 hr 07/25/17 07/25/17 Range/Units 05:23 05:23 WBC 8.5 (4.5-11.0) K/uL RBC 3.94 (3.30-5.50) M/uL Hgb 10.7 L (12.0-15.0) g/dL Hct 35.9 L (36.0-48.0) % MCV 91 (80-98) fL MCH 27 (27-31) pg MCHC 30 L (32-36) % Plt Count 187 (150-400) K/uL Sodium 149 H (140-148) mmol/L Potassium 5.0 (3.6-5.2) mmol/L Chloride 112 H (100-108) mmol/L Carbon Dioxide 29 (21-32) mmol/L Anion Gap 13.0 (5.0-14.0) mmol/L BUN 26 H (7-18) mg/dL Creatinine 1.4 H (0.6-1.0) mg/dL Est Cr Clr Drug Dosing 29.73 mL/min Estimated GFR (MDRD) 37 L (>60) Glucose 125 H (74-106) mg/dL Calcium 9.1 (8.5-10.1) mg/dL Magnesium 1.9 (1.8-2.4) mg/dL Med Orders - Current: Current Medications Enoxaparin Sodium (Lovenox) 40 mg SUBCUT DAILY [facility] Furosemide (Lasix) 20 mg IVPUSH Q8H PRIETO Morphine Sulfate (Morphine 10 Mg/0.5 Ml Oral Syringe) 5 mg PO Q4H PRN PRN Reason: Pain Last Admin: 07/25/17 03:15 Dose: 5 mg Ondansetron HCl (Zofran) 4 mg IV Q6H PRN PRN Reason: Nausea/Vomiting Sodium Chloride (Saline Flush) 10 ml FLUSH ASDIRECTED PRN PRN Reason: Keep Vein Open Last Admin: 07/24/17 18:23 Dose: 10 ml Vancomycin HCl (Vancocin 250 Mg/5 Ml Soln) 250 mg PO QID [facility] Last Admin: 07/25/17 06:00 Dose: 250 mg Discontinued Medications Furosemide (Lasix) 60 mg IVPUSH ONETIME ONE Stop: 07/24/17 18:02 Last Admin: 07/24/17 18:22 Dose: 60 mg Furosemide (Lasix) 40 mg IVPUSH Q8H [facility] Last Admin: 07/25/17 01:51 Dose: 40 mg Vancomycin HCl (Vancomycin) Confirm Administered Dose 1,000 mg .ROUTE .STK-MED ONE Stop: 07/24/17 21:24 Last Admin: 07/24/17 22:01 Dose: Not Given - Exam Quality Assessment: Supplemental Oxygen General: Alert, Oriented, Cooperative, No Acute Distress Neck: Supple Lungs: Normal Respiratory Effort, Crackles (both lower lungs) Cardiovascular: Regular Rate, Regular Rhythm GI/Abdominal Exam: Soft, No Distention Extremities: Pedal Edema (pitting edema both lower legs to the thigh ), Other ( both legs wrapped with Coban 2 system) Psy/Mental Status: Alert, Normal Affect - Problem List & Annotations (1) Diastolic CHF, acute on chronic SNOMED Code(s): 277725470 Code(s): I50.33 - ACUTE ON CHRONIC DIASTOLIC (CONGESTIVE) HEART FAILURE Status: Acute Current Visit: Yes (2) CKD (chronic kidney disease), stage III SNOMED Code(s): 800266621 Code(s): N18.3 - CHRONIC KIDNEY DISEASE, STAGE 3 (MODERATE) Status: Chronic Current Visit: Yes (3) Clostridium difficile diarrhea SNOMED Code(s): 2549372791705 Code(s): A04.72 - ENTEROCOLITIS D/T CLOSTRIDIUM DIFFICILE, NOT SPCF RECUR Status: Acute Current Visit: Yes - Problem List Review Problem List Initiated/Reviewed/Updated: Yes - My Orders Last 24 Hours: My Active Orders 07/24/17 19:21 Resuscitation Status Routine 07/24/17 20:27 Patient Status [ADT] Routine Bedrest Bedside Commode [RC] ASDIRECTED Height and Weight [RC] 0500 Intake and Output [RC] QSHIFT Notify Provider Vital Signs [RC] ASDIRECTED Oxygen Therapy [RC] PRN Up With Assistance [RC] ASDIRECTED Vital Signs [RC] Q4H Ondansetron [Zofran] 4 mg IV Q6H PRN Vancomycin [Vancocin 250 MG/5 ML Soln] 250 mg PO QID Isolation [COMM] Routine 07/25/17 03:08 Congestive Heart Failure Education [OM.PC] Routine 07/25/17 09:00 Enoxaparin [Lovenox] 40 mg SUBCUT DAILY 07/25/17 09:21 Discontinue Telemetry Monitoring [Cardiac Monitoring Discontinue] [RC] Click to Edit 07/25/17 09:22 Dressing Change [Wound Care] [RC] Q2D 07/25/17 10:00 Furosemide [Lasix] 20 mg IVPUSH Q8H 07/25/17 18:45 Insert Gomez Catheter [Insert Urinary Catheter] [OM.PC] Q24H 07/26/17 05:00 BASIC METABOLIC PANEL,BMP [CHEM] Timed - Plan Plan:: ASSESSMENT AND PLAN - Acute diastolic congestive heart failure - clinical but not symptomatic improvement with diuresis yesterday. Blood pressures have improved and heart rate has normalized. Slight bump in creatinine with more aggressive diuresis yesterday. Beta tobi and ADRIANNA inhibitor have been considered but due to her allergies it may be very difficult to utilize these medications. -Furosemide every 8 hours (starting 20 mg dose today) -Gomez catheter was placed for strict intake and output monitoring -Cardiac monitoring -Daily weights -Consider beta tobi once volume status improves CKD 3 - Creatinine up slightly from yesterday and we need to back off on diuresis slightly. Still has excellent urine output. -Strict monitoring -Labs in the morning Clostridium difficile diarrhea - On treatment with vancomycin and has been for approximately 2 weeks. Still having some diarrhea. -Continue vancomycin 4 times a day -Contact precautions It is noted that the patient is allergic to magnesium stearate and is unable to take essentially all pills and capsules. She does well with liquid medications for the most part. Maintenance issues - - DVT prophylaxis - enoxaparin - GI prophylaxis - not indicated - Nutrition - low sodium diet - Gomez catheter - placed in the emergency room for strict intake and output monitoring. Plan to keep Gomez in for intake and output monitoring during the acute phase of diuresis. Disposition - anticipate discharge home after the hospital stay Ascencion Tamez M.D.
[2017-07-25] MEDS: Enoxaparin 40 MG/0.4 ML Syringe SUBCUT SCH (09:39)
[2017-07-25] MEDS: Furosemide 20 MG/2 ML VIAL IVPUSH SCH ×2 (10:52→17:34)
[2017-07-26] MEDS: Morphine 10 MG/0.5 ML Oral Syringe PO PRN ×3 (00:46→20:51)
[2017-07-26] MEDS: Furosemide 20 MG/2 ML VIAL IVPUSH SCH ×3 (02:00→17:14)
[2017-07-26] MEDS: Vancomycin 250 MG/5 ML ML Oral Solution PO SCH ×4 (05:56→22:10)
[2017-07-26] MEDS: Enoxaparin 40 MG/0.4 ML Syringe SUBCUT SCH (09:25)
[2017-07-26] MEDS: ACETAMINOPHEN 325 MG PO PRN (09:26)
[2017-07-26] MEDS ORDERED: Furosemide 40 MG/4 ML VIAL IVPUSH ONE (10:00)
[2017-07-26] MEDS: cefTRIAXone 1 GM in Sodium Chloride 0.9% 50 ML IV SCH (10:36)
--- NOTE | 2017-07-26 10:36 | PCM.PN ---
- General Info Date of Service: 07/26/17 Functional Status: Reports: Pain Controlled, Tolerating Diet - Review of Systems General: Reports: Weakness Pulmonary: Reports: Shortness of Breath Cardiovascular: Reports: Edema Systems Review Comment:: No acute events overnight. Good diuresis again yesterday but not quite as good as the evening of admission. Kidney function has remained stable. Shortness of breath and hypoxia have slowly improved. Lower extremity edema is a little better today. She still feels short of breath and weak. Urine sample was mildly suggestive of infection and urine culture is growing a gram-negative lela. - Patient Data Vitals - Most Recent: Last Vital Signs Temp 36.6 C 07/26/17 07:25 Pulse 84 07/26/17 07:25 Resp 24 H 07/26/17 07:25 BP 163/103 H 07/26/17 07:25 Pulse Ox 96 07/26/17 07:25 Weight - Most Recent: 136.078 kg I&O - Last 24 Hours: Intake & Output 07/25/17 07/26/17 07/26/17 22:59 06:59 14:59 Intake Total 600 60 Output Total 450 1000 Balance 150 -1000 60 Lab Results Last 24 Hours: Laboratory Results - last 24 hr 07/26/17 Range/Units 05:18 Sodium 147 (140-148) mmol/L Potassium 4.3 (3.6-5.2) mmol/L Chloride 109 H (100-108) mmol/L Carbon Dioxide 33 H (21-32) mmol/L Anion Gap 9.3 (5.0-14.0) mmol/L BUN 29 H (7-18) mg/dL Creatinine 1.4 H (0.6-1.0) mg/dL Est Cr Clr Drug Dosing 29.73 mL/min Estimated GFR (MDRD) 37 L (>60) Glucose 113 H (74-106) mg/dL Calcium 8.6 (8.5-10.1) mg/dL Med Orders - Current: Current Medications Acetaminophen (Tylenol) 650 mg PO Q4H PRN PRN Reason: pain Last Admin: 07/26/17 09:26 Dose: 650 mg Enoxaparin Sodium (Lovenox) 40 mg SUBCUT DAILY [facility] Last Admin: 07/26/17 09:25 Dose: 40 mg Furosemide (Lasix) 20 mg IVPUSH Q8H [facility] Ceftriaxone Sodium 1 gm/ (Sodium Chloride) 50 mls @ 100 mls/hr IV Q24H [facility] Morphine Sulfate (Morphine 10 Mg/0.5 Ml Oral Syringe) 5 mg PO Q4H PRN PRN Reason: Pain Last Admin: 07/26/17 05:56 Dose: 5 mg Ondansetron HCl (Zofran) 4 mg IV Q6H PRN PRN Reason: Nausea/Vomiting Sodium Chloride (Saline Flush) 10 ml FLUSH ASDIRECTED PRN PRN Reason: Keep Vein Open Last Admin: 07/24/17 18:23 Dose: 10 ml Vancomycin HCl (Vancocin 250 Mg/5 Ml Soln) 250 mg PO QID [facility] Last Admin: 07/26/17 10:00 Dose: 250 mg Discontinued Medications Furosemide (Lasix) 60 mg IVPUSH ONETIME ONE Stop: 07/24/17 18:02 Last Admin: 07/24/17 18:22 Dose: 60 mg Furosemide (Lasix) 40 mg IVPUSH Q8H [facility] Last Admin: 07/25/17 01:51 Dose: 40 mg Furosemide (Lasix) 20 mg IVPUSH Q8H [facility] Last Admin: 07/26/17 09:26 Dose: 20 mg Furosemide (Lasix) 40 mg IVPUSH ONETIME ONE Stop: 07/26/17 10:01 Vancomycin HCl (Vancomycin) Confirm Administered Dose 1,000 mg .ROUTE .STK-MED ONE Stop: 07/24/17 21:24 Last Admin: 07/24/17 22:01 Dose: Not Given - Exam Quality Assessment: Supplemental Oxygen General: Alert, Oriented, Cooperative, No Acute Distress Neck: Supple Lungs: Normal Respiratory Effort, Crackles (both bases) Cardiovascular: Regular Rate, Regular Rhythm, Murmurs GI/Abdominal Exam: Soft, No Distention Extremities: Pedal Edema, Other (both legs wrapped from foot to knee with Coban 2) Psy/Mental Status: Alert, Normal Affect - Problem List & Annotations (1) Diastolic CHF, acute on chronic SNOMED Code(s): 454194826 Code(s): I50.33 - ACUTE ON CHRONIC DIASTOLIC (CONGESTIVE) HEART FAILURE Status: Acute Current Visit: Yes (2) CKD (chronic kidney disease), stage III SNOMED Code(s): 740648494 Code(s): N18.3 - CHRONIC KIDNEY DISEASE, STAGE 3 (MODERATE) Status: Chronic Current Visit: Yes (3) Clostridium difficile diarrhea SNOMED Code(s): 7001783291894 Code(s): A04.72 - ENTEROCOLITIS D/T CLOSTRIDIUM DIFFICILE, NOT SPCF RECUR Status: Acute Current Visit: Yes - Problem List Review Problem List Initiated/Reviewed/Updated: Yes - My Orders Last 24 Hours: My Active Orders 07/25/17 18:45 Insert Gomez Catheter [Insert Urinary Catheter] [OM.PC] Q24H 07/26/17 10:00 cefTRIAXone [Rocephin] 1 gm Sodium Chloride 0.9% [Normal Saline] 50 ml IV Q24H 07/26/17 18:00 Furosemide [Lasix] 20 mg IVPUSH Q8H 07/27/17 05:00 BASIC METABOLIC PANEL,BMP [CHEM] Timed CBC W/O DIFF,HEMOGRAM [HEME] Timed (1) - Plan Plan:: ASSESSMENT AND PLAN - Acute diastolic congestive heart failure - mild improvement from yesterday with good diuresis. Kidney function has been stable. Weight is down nearly 10 pounds. Still has significant edema as well as some pulmonary edema. -Furosemide every 8 hours (40 mg this morning and then 20 mg this evening and overnight) -Gomez catheter was placed for strict intake and output monitoring -Cardiac monitoring -Daily weights -Consider beta tobi once volume status improves CKD 3 - Creatinine stable compared to yesterday. -Strict monitoring -Labs in the morning Clostridium difficile diarrhea - On treatment with vancomycin and has been for approximately 2 weeks. Diarrhea seems to have resolved. -Continue vancomycin 4 times a day -Contact precautions Possible acute cystitis - urine sample moderately suggestive of infection and urine culture is growing a gram-negative lela. She has not had fevers. -Empiric ceftriaxone until cultures are final It is noted that the patient is allergic to magnesium stearate and is unable to take essentially all pills and capsules. She does well with liquid medications for the most part. Maintenance issues - - DVT prophylaxis - enoxaparin - GI prophylaxis - not indicated - Nutrition - low sodium diet - Gomez catheter - placed in the emergency room for strict intake and output monitoring. Plan to keep Gomez in for intake and output monitoring during the acute phase of diuresis. Disposition - anticipate discharge home versus a short stay at the assisted after the hospital stay Ascencion Tamez M.D.
[2017-07-27] MEDS: ACETAMINOPHEN 325 MG PO PRN ×2 (00:39→18:33)
[2017-07-27] MEDS: Furosemide 20 MG/2 ML VIAL IVPUSH SCH ×3 (01:10→18:23)
[2017-07-27] MEDS: Morphine 10 MG/0.5 ML Oral Syringe PO PRN (01:10)
[2017-07-27] MEDS: Vancomycin 250 MG/5 ML ML Oral Solution PO SCH ×4 (06:40→21:28)
--- NOTE | 2017-07-27 09:53 | CR ---
Chest 1V Frontal INDICATION: sob FINDINGS: Comparison 05/04/2015. Shallow inspiration. New diffuse bilateral interstitial and airspace opacities throughout both lungs. Epidural leads in place.
--- NOTE | 2017-07-27 10:06 | PCM.PN ---
- General Info Date of Service: 07/27/17 Functional Status: Reports: Pain Controlled, Tolerating Diet, Ambulating - Review of Systems General: Reports: Weakness Pulmonary: Reports: Shortness of Breath Cardiovascular: Reports: Edema Systems Review Comment:: No acute events overnight. She is now off supplemental oxygen. Still has significant edema but it seems a little better today. Strength has been improving and she's now able to get to the bathroom without assistance. Diarrhea has resolved. Kidney function stable with current diuresis. Good response to diuresis again yesterday. - Patient Data Vitals - Most Recent: Last Vital Signs Temp 36.9 C 07/27/17 07:00 Pulse 83 07/27/17 07:00 Resp 16 07/27/17 07:00 BP 153/93 H 07/27/17 07:00 Pulse Ox 93 L 07/27/17 07:00 Weight - Most Recent: 136.078 kg I&O - Last 24 Hours: Intake & Output 07/26/17 07/27/17 07/27/17 22:59 06:59 14:59 Intake Total 240 240 Output Total 700 1300 Balance -460 -1300 240 Lab Results Last 24 Hours: Laboratory Results - last 24 hr 07/27/17 07/27/17 Range/Units 05:52 05:52 WBC 7.4 (4.5-11.0) K/uL RBC 3.67 (3.30-5.50) M/uL Hgb 9.7 L (12.0-15.0) g/dL Hct 34.1 L (36.0-48.0) % MCV 93 (80-98) fL MCH 26 L (27-31) pg MCHC 28 L (32-36) % Plt Count 188 (150-400) K/uL Sodium 145 (140-148) mmol/L Potassium 4.5 (3.6-5.2) mmol/L Chloride 106 (100-108) mmol/L Carbon Dioxide 36 H (21-32) mmol/L Anion Gap 7.5 (5.0-14.0) mmol/L BUN 29 H (7-18) mg/dL Creatinine 1.4 H (0.6-1.0) mg/dL Est Cr Clr Drug Dosing 29.73 mL/min Estimated GFR (MDRD) 37 L (>60) Glucose 113 H (74-106) mg/dL Calcium 8.3 L (8.5-10.1) mg/dL Med Orders - Current: Current Medications Acetaminophen (Tylenol) 650 mg PO Q4H PRN PRN Reason: pain Last Admin: 07/27/17 00:39 Dose: 650 mg Enoxaparin Sodium (Lovenox) 40 mg SUBCUT DAILY [facility] Last Admin: 07/26/17 09:25 Dose: 40 mg Furosemide (Lasix) 20 mg IVPUSH Q8H [facility] Last Admin: 07/27/17 01:10 Dose: 20 mg Ceftriaxone Sodium 1 gm/ (Sodium Chloride) 50 mls @ 100 mls/hr IV Q24H [facility] Last Admin: 07/26/17 10:36 Dose: 100 mls/hr Morphine Sulfate (Morphine 10 Mg/0.5 Ml Oral Syringe) 5 mg PO Q4H PRN PRN Reason: Pain Last Admin: 07/27/17 01:10 Dose: 5 mg Ondansetron HCl (Zofran) 4 mg IV Q6H PRN PRN Reason: Nausea/Vomiting Sodium Chloride (Saline Flush) 10 ml FLUSH ASDIRECTED PRN PRN Reason: Keep Vein Open Last Admin: 07/24/17 18:23 Dose: 10 ml Vancomycin HCl (Vancocin 250 Mg/5 Ml Soln) 250 mg PO QID [facility] Last Admin: 07/27/17 06:40 Dose: 250 mg Discontinued Medications Furosemide (Lasix) 60 mg IVPUSH ONETIME ONE Stop: 07/24/17 18:02 Last Admin: 07/24/17 18:22 Dose: 60 mg Furosemide (Lasix) 40 mg IVPUSH Q8H [facility] Last Admin: 07/25/17 01:51 Dose: 40 mg Furosemide (Lasix) 20 mg IVPUSH Q8H [facility] Last Admin: 07/26/17 09:26 Dose: 20 mg Furosemide (Lasix) 40 mg IVPUSH ONETIME ONE Stop: 07/26/17 10:01 Last Admin: 07/26/17 10:35 Dose: 20 mg Vancomycin HCl (Vancomycin) Confirm Administered Dose 1,000 mg .ROUTE .STK-MED ONE Stop: 07/24/17 21:24 Last Admin: 07/24/17 22:01 Dose: Not Given - Exam Quality Assessment: No: Supplemental Oxygen General: Alert, Oriented, Cooperative, No Acute Distress Neck: Supple Lungs: Clear to Auscultation, Normal Respiratory Effort Cardiovascular: Regular Rate, Regular Rhythm, Murmurs GI/Abdominal Exam: Soft, No Distention Extremities: Pedal Edema (pitting edema to the knee bilaterally ) Psy/Mental Status: Alert, Normal Affect - Problem List & Annotations (1) Diastolic CHF, acute on chronic SNOMED Code(s): 989488103 Code(s): I50.33 - ACUTE ON CHRONIC DIASTOLIC (CONGESTIVE) HEART FAILURE Status: Acute Current Visit: Yes (2) CKD (chronic kidney disease), stage III SNOMED Code(s): 273423810 Code(s): N18.3 - CHRONIC KIDNEY DISEASE, STAGE 3 (MODERATE) Status: Chronic Current Visit: Yes (3) Clostridium difficile diarrhea SNOMED Code(s): 6731802301571 Code(s): A04.72 - ENTEROCOLITIS D/T CLOSTRIDIUM DIFFICILE, NOT SPCF RECUR Status: Acute Current Visit: Yes - Problem List Review Problem List Initiated/Reviewed/Updated: Yes - My Orders Last 24 Hours: My Active Orders 07/26/17 10:00 cefTRIAXone [Rocephin] 1 gm Sodium Chloride 0.9% [Normal Saline] 50 ml IV Q24H 07/26/17 18:00 Furosemide [Lasix] 20 mg IVPUSH Q8H 07/27/17 07:00 PT Evaluation and Treatment [CONS] Routine 07/28/17 05:00 BASIC METABOLIC PANEL,BMP [CHEM] Timed HGB [HEMOGLOBIN] [HEME] Timed - Plan Plan:: ASSESSMENT AND PLAN - Acute diastolic congestive heart failure - echocardiogram in [place] showed normal systolic function but abnormal diastolic function. Ongoing but slow improvement in both symptoms and examination. Tolerating current level of diuresis. Now off supplemental oxygen. Beta tobi considered but not initiated with concerns for allergic response given allergy to magnesium stearate and no liquid options available. -Furosemide every 8 hours -Gomez catheter was placed for strict intake and output monitoring -Cardiac monitoring -Daily weights -Consider beta tobi once volume status improves CKD 3 - Creatinine stable for past 3 days. -Strict monitoring -Labs in the morning Clostridium difficile diarrhea - On treatment with vancomycin and has been for approximately 2 weeks. Diarrhea resolved. -Continue vancomycin 4 times a day (one month of treatment recommended by her primary care provider) -Contact precautions Acute cystitis - urine culture growing 2 strains of Escherichia coli. -Continue ceftriaxone, discontinue after dose tomorrow (total of 3 doses) It is noted that the patient is allergic to magnesium stearate and is unable to take essentially all pills and capsules. She does well with liquid medications for the most part. Maintenance issues - - DVT prophylaxis - enoxaparin - GI prophylaxis - not indicated - Nutrition - low sodium diet - Gomez catheter - placed in the emergency room for strict intake and output monitoring. Plan to keep Gomez in for intake and output monitoring during the acute phase of diuresis but should be able to remove tomorrow or the next day. Disposition - anticipate discharge home [facility] stay Ascencion Tamez M.D.
[2017-07-27] MEDS: cefTRIAXone 1 GM in Sodium Chloride 0.9% 50 ML IV SCH (10:07)
[2017-07-27] MEDS: Enoxaparin 40 MG/0.4 ML Syringe SUBCUT SCH (10:07)
[2017-07-28] MEDS: Furosemide 20 MG/2 ML VIAL IVPUSH SCH ×3 (01:43→17:00)
[2017-07-28] MEDS: Morphine 10 MG/0.5 ML Oral Syringe PO PRN ×3 (01:52→23:58)
[2017-07-28] MEDS: Vancomycin 250 MG/5 ML ML Oral Solution PO SCH ×4 (05:44→22:27)
[2017-07-28] MEDS: cefTRIAXone 1 GM in Sodium Chloride 0.9% 50 ML IV SCH (09:01)
[2017-07-28] MEDS: Enoxaparin 40 MG/0.4 ML Syringe SUBCUT SCH (09:01)
[2017-07-28] MEDS: ACETAMINOPHEN 325 MG PO PRN ×2 (13:23→22:25)
--- NOTE | 2017-07-28 14:33 | PCM.PN ---
- General Info Date of Service: 07/28/17 Subjective Update: Ms. Menendez is a 76-year-old woman who is admitted with severe fluid overload and pulmonary edema causing shortness of breath. She's had a recent echocardiogram that showed normal left ventricular function and she is felt to have congestive heart failure with preserved left ventricular function. She's had good diuresis since admission with improvement in peripheral edema and shortness of breath. Functional Status: Reports: Tolerating Diet - Review of Systems General: Reports: Weakness. Denies: Fever, Chills Pulmonary: Reports: Shortness of Breath. Denies: Pleuritic Chest Pain, Cough, Sputum, Hemoptysis, Wheezing Cardiovascular: Reports: Dyspnea on Exertion, Edema. Denies: Chest Pain, Palpitations, Orthopnea, PND, Lightheadedness Gastrointestinal: Reports: No Symptoms - Patient Data Vitals - Most Recent: Last Vital Signs Temp 98.4 F 07/28/17 11:32 Pulse 72 07/28/17 11:32 Resp 16 07/28/17 11:32 BP 148/72 H 07/28/17 11:32 Pulse Ox 93 L 07/28/17 13:25 Weight - Most Recent: 301 lb 6.4 oz I&O - Last 24 Hours: Intake & Output 07/27/17 07/28/17 07/28/17 22:59 06:59 14:59 Intake Total 240 240 520 Output Total 900 1000 625 Balance -463 -760 105 Lab Results Last 24 Hours: Laboratory Results - last 24 hr 07/28/17 07/28/17 Range/Units 05:30 05:30 Hgb 10.2 L (12.0-15.0) g/dL Sodium 144 (140-148) mmol/L Potassium 4.9 (3.6-5.2) mmol/L Chloride 106 (100-108) mmol/L Carbon Dioxide 30 (21-32) mmol/L Anion Gap 7.8 (5.0-14.0) mmol/L BUN 28 H (7-18) mg/dL Creatinine 1.3 H (0.6-1.0) mg/dL Est Cr Clr Drug Dosing 32.02 mL/min Estimated GFR (MDRD) 40 L (>60) Glucose 124 H (74-106) mg/dL Calcium 8.7 (8.5-10.1) mg/dL Med Orders - Current: Current Medications Acetaminophen (Tylenol) 650 mg PO Q4H PRN PRN Reason: pain Last Admin: 07/28/17 13:23 Dose: 650 mg Enoxaparin Sodium (Lovenox) 40 mg SUBCUT DAILY [facility] Last Admin: 07/28/17 09:01 Dose: 40 mg Furosemide (Lasix) 20 mg IVPUSH Q8H [facility] Last Admin: 07/28/17 09:01 Dose: 20 mg Ceftriaxone Sodium 1 gm/ (Sodium Chloride) 50 mls @ 100 mls/hr IV Q24H [facility] Last Admin: 07/28/17 09:01 Dose: 100 mls/hr Morphine Sulfate (Morphine 10 Mg/0.5 Ml Oral Syringe) 5 mg PO Q4H PRN PRN Reason: Pain Last Admin: 07/28/17 06:26 Dose: 5 mg Ondansetron HCl (Zofran) 4 mg IV Q6H PRN PRN Reason: Nausea/Vomiting Sodium Chloride (Saline Flush) 10 ml FLUSH ASDIRECTED PRN PRN Reason: Keep Vein Open Last Admin: 07/24/17 18:23 Dose: 10 ml Vancomycin HCl (Vancocin 250 Mg/5 Ml Soln) 250 mg PO QID [facility] Last Admin: 07/28/17 10:00 Dose: 250 mg Discontinued Medications Furosemide (Lasix) 60 mg IVPUSH ONETIME ONE Stop: 07/24/17 18:02 Last Admin: 07/24/17 18:22 Dose: 60 mg Furosemide (Lasix) 40 mg IVPUSH Q8H [facility] Last Admin: 07/25/17 01:51 Dose: 40 mg Furosemide (Lasix) 20 mg IVPUSH Q8H [facility] Last Admin: 07/26/17 09:26 Dose: 20 mg Furosemide (Lasix) 40 mg IVPUSH ONETIME ONE Stop: 07/26/17 10:01 Last Admin: 07/26/17 10:35 Dose: 20 mg Vancomycin HCl (Vancomycin) Confirm Administered Dose 1,000 mg .ROUTE .STK-MED ONE Stop: 07/24/17 21:24 Last Admin: 07/24/17 22:01 Dose: Not Given - Exam Quality Assessment: Supplemental Oxygen, Urine Catheter, DVT Prophylaxis General: Alert, Oriented, Cooperative, No Acute Distress Lungs: Normal Respiratory Effort, Rales. No: Decreased Breath Sounds, Crackles , Rhonchi, Rub Cardiovascular: Regular Rate, Regular Rhythm, Murmurs GI/Abdominal Exam: Soft, Non-Tender, No Organomegaly, No Distention Extremities: Non-Tender, Pedal Edema Skin: Warm, Dry - Problem List Review Problem List Initiated/Reviewed/Updated: Yes - My Orders Last 24 Hours: My Active Orders 07/29/17 05:00 BASIC METABOLIC PANEL,BMP [CHEM] Timed MAGNESIUM [CHEM] Timed - Plan Plan:: ASSESSMENT AND PLAN - Congestive heart failure with preserved left ventricular function- echocardiogram in [place] showed normal systolic function but abnormal diastolic function. Continued good diuresis with improvement in shortness of breath and edema -Furosemide every 8 hours -Gomez catheter was placed for strict intake and output monitoring -Cardiac monitoring -Daily weights -Consider beta tobi once volume status improves CKD 3 - Creatinine stable for past 4 days. -Strict monitoring -Labs in the morning Clostridium difficile diarrhea - On treatment with vancomycin and has been for approximately 2 weeks. Diarrhea resolved. -Continue vancomycin 4 times a day (one month of treatment recommended by her primary care provider) -Contact precautions Acute cystitis - urine culture growing 2 strains of Escherichia coli. -Discontinue ceftriaxone, she is completed course of therapy It is noted that the patient is allergic to magnesium stearate and is unable to take essentially all pills and capsules. She does well with liquid medications for the most part. Maintenance issues - - DVT prophylaxis - enoxaparin - GI prophylaxis - not indicated - Nutrition - low sodium diet - Gomez catheter - placed in the emergency room for strict intake and output monitoring. Plan to keep Gomez in for intake and output monitoring during the acute phase of diuresis but should be able to remove tomorrow or the next day. Disposition - anticipate discharge home versus a short stay at the long-term after the hospital stay
[2017-07-29] MEDS: Furosemide 20 MG/2 ML VIAL IVPUSH SCH (01:56)
[2017-07-29] MEDS: Morphine 10 MG/0.5 ML Oral Syringe PO PRN ×3 (04:12→22:52)
[2017-07-29] MEDS: Vancomycin 250 MG/5 ML ML Oral Solution PO SCH ×4 (07:03→22:52)
[2017-07-29] MEDS: Enoxaparin 40 MG/0.4 ML Syringe SUBCUT SCH (08:59)
[2017-07-29] MEDS ORDERED: Furosemide 40 MG Tab PO SCH (09:00)
[2017-07-29] MEDS ORDERED: Sodium Polystyrene Sulfonate 15 GM/60 ML Susp 60 ML Bot PO ONE (09:00)
[2017-07-29] MEDS: Furosemide Soln 10 MG/ML 60 ML Bottle PO SCH ×2 (09:15→20:03)
--- NOTE | 2017-07-29 11:24 | PCM.PN ---
- General Info Date of Service: 07/29/17 Subjective Update: Ms. Menendez is been stable since yesterday, potassium level was elevated on this morning's labs. She has had ongoing excellent diuresis and is down approximately 8 L from admission. Edema has improved but certainly not totally resolved. Will plan to transition to oral diuretic therapy today with discharge to intermediate tomorrow. Functional Status: Reports: Tolerating Diet - Review of Systems General: Reports: Weakness. Denies: Fever, Chills Pulmonary: Reports: No Symptoms Cardiovascular: Reports: Edema. Denies: Chest Pain, Palpitations, Dyspnea on Exertion, Orthopnea, PND Gastrointestinal: Reports: No Symptoms - Patient Data Vitals - Most Recent: Last Vital Signs Temp 97.9 F 07/29/17 11:15 Pulse 95 07/29/17 11:15 Resp 20 07/29/17 11:15 BP 157/75 H 07/29/17 11:15 Pulse Ox 92 L 07/29/17 11:15 Weight - Most Recent: 303 lb 2.17 oz I&O - Last 24 Hours: Intake & Output 07/28/17 07/29/17 07/29/17 22:59 06:59 14:59 Intake Total 476 480 Output Total 475 950 125 Balance 1 -950 355 Lab Results Last 24 Hours: Laboratory Results - last 24 hr 07/29/17 Range/Units 06:02 Sodium 143 (140-148) mmol/L Potassium 5.6 H (3.6-5.2) mmol/L Chloride 105 (100-108) mmol/L Carbon Dioxide 31 (21-32) mmol/L Anion Gap 12.6 (5.0-14.0) mmol/L BUN 30 H (7-18) mg/dL Creatinine 1.1 H (0.6-1.0) mg/dL Est Cr Clr Drug Dosing 37.84 mL/min Estimated GFR (MDRD) 48 L (>60) Glucose 117 H (74-106) mg/dL Calcium 9.0 (8.5-10.1) mg/dL Magnesium 2.1 (1.8-2.4) mg/dL Med Orders - Current: Current Medications Acetaminophen (Tylenol) 650 mg PO Q4H PRN PRN Reason: pain Last Admin: 07/28/17 22:25 Dose: 650 mg Enoxaparin Sodium (Lovenox) 40 mg SUBCUT DAILY [facility] Last Admin: 07/29/17 08:59 Dose: 40 mg Furosemide (Lasix Oral Soln) 40 mg PO BID [facility] Last Admin: 07/29/17 09:15 Dose: 40 mg Morphine Sulfate (Morphine 10 Mg/0.5 Ml Oral Syringe) 5 mg PO Q4H PRN PRN Reason: Pain Last Admin: 07/29/17 04:12 Dose: 5 mg Ondansetron HCl (Zofran) 4 mg IV Q6H PRN PRN Reason: Nausea/Vomiting Sodium Chloride (Saline Flush) 10 ml FLUSH ASDIRECTED PRN PRN Reason: Keep Vein Open Last Admin: 07/24/17 18:23 Dose: 10 ml Vancomycin HCl (Vancocin 250 Mg/5 Ml Soln) 250 mg PO QID [facility] Last Admin: 07/29/17 10:28 Dose: 250 mg Discontinued Medications Furosemide (Lasix) 60 mg IVPUSH ONETIME ONE Stop: 07/24/17 18:02 Last Admin: 07/24/17 18:22 Dose: 60 mg Furosemide (Lasix) 40 mg IVPUSH Q8H [facility] Last Admin: 07/25/17 01:51 Dose: 40 mg Furosemide (Lasix) 20 mg IVPUSH Q8H [facility] Last Admin: 07/26/17 09:26 Dose: 20 mg Furosemide (Lasix) 40 mg IVPUSH ONETIME ONE Stop: 07/26/17 10:01 Last Admin: 07/26/17 10:35 Dose: 20 mg Furosemide (Lasix) 20 mg IVPUSH Q8H [facility] Last Admin: 07/29/17 01:56 Dose: 20 mg Ceftriaxone Sodium 1 gm/ (Sodium Chloride) 50 mls @ 100 mls/hr IV Q24H [facility] Last Admin: 07/28/17 09:01 Dose: 100 mls/hr Sodium Polystyrene Sulfonate (Kayexalate) 30 gm PO ONETIME ONE Stop: 07/29/17 09:01 Last Admin: 07/29/17 08:59 Dose: 30 gm Vancomycin HCl (Vancomycin) Confirm Administered Dose 1,000 mg .ROUTE .STK-MED ONE Stop: 07/24/17 21:24 Last Admin: 07/24/17 22:01 Dose: Not Given - Exam Quality Assessment: Urine Catheter, DVT Prophylaxis General: Alert, Oriented, No Acute Distress Lungs: Clear to Auscultation, Normal Respiratory Effort Cardiovascular: Regular Rate, Regular Rhythm, Murmurs GI/Abdominal Exam: Soft, Non-Tender, No Organomegaly, No Distention Extremities: Non-Tender, Pedal Edema Skin: Warm, Dry - Problem List Review Problem List Initiated/Reviewed/Updated: Yes - My Orders Last 24 Hours: My Active Orders 07/29/17 09:15 Furosemide [Lasix Oral Soln] 40 mg PO BID 07/29/17 17:00 POTASSIUM,K [CHEM] Urgent 07/30/17 05:00 BASIC METABOLIC PANEL,BMP [CHEM] Timed - Plan Plan:: ASSESSMENT AND PLAN - Congestive heart failure with preserved left ventricular function- echocardiogram in [place] showed normal systolic function but abnormal diastolic function. Continued good diuresis with improvement in shortness of breath and edema -Furosemide 40 mg by mouth twice a day -Discontinue Gomez catheter -Discontinue threat monitoring analyst -Daily weights CKD 3 - Creatinine stable for past 5 days. -Strict monitoring -Labs in the morning Clostridium difficile diarrhea -no further diarrhea -Continue vancomycin 4 times a day (one month of treatment recommended by her primary care provider) -Contact precautions Acute cystitis - urine culture growing 2 strains of Escherichia coli. -She has completed a course of antibiotic therapy with IV ceftriaxone It is noted that the patient is allergic to magnesium stearate and is unable to take essentially all pills and capsules. She does well with liquid medications for the most part. Maintenance issues - - DVT prophylaxis - enoxaparin - GI prophylaxis - not indicated - Nutrition - low sodium diet - Gomez catheter - placed in the emergency room for strict intake and output monitoring. Plan to keep Gomez in for intake and output monitoring during the acute phase of diuresis but should be able to remove tomorrow or the next day. Disposition - anticipate discharge to intermediate tomorrow
[2017-07-30] MEDS: Morphine 10 MG/0.5 ML Oral Syringe PO PRN (02:41)
[2017-07-30] MEDS: Vancomycin 250 MG/5 ML ML Oral Solution PO SCH ×2 (05:50→10:02)
[2017-07-30] MEDS: Furosemide Soln 10 MG/ML 60 ML Bottle PO SCH (09:02)
[2017-07-30] MEDS: Enoxaparin 40 MG/0.4 ML Syringe SUBCUT SCH (09:03)
[2017-07-30] MEDS: ACETAMINOPHEN 325 MG PO PRN (09:03)
--- NOTE | 2017-07-30 10:54 | PCM.DCSUM1 ---
Discharge Summary - Hospital Course Brief History: Ms. Menendez is a 76-year-old woman who is admitted through the emergency department with acute on chronic diastolic congestive heart failure, severe peripheral edema, pulmonary edema, and hypoxia. - Discharge Data Discharge Date: 07/30/17 Discharge Disposition: DC/Tfer to SNF 03 Condition: Fair - Discharge Diagnosis/Problem(s) (1) Clostridium difficile diarrhea SNOMED Code(s): 5980040390632 ICD Code: A04.72 - ENTEROCOLITIS D/T CLOSTRIDIUM DIFFICILE, NOT SPCF RECUR Status: Acute Current Visit: Yes (2) Diastolic CHF, acute on chronic SNOMED Code(s): 235558278 ICD Code: I50.33 - ACUTE ON CHRONIC DIASTOLIC (CONGESTIVE) HEART FAILURE Status: Acute Current Visit: Yes (3) CKD (chronic kidney disease), stage III SNOMED Code(s): 080950947 ICD Code: N18.3 - CHRONIC KIDNEY DISEASE, STAGE 3 (MODERATE) Status: Chronic Current Visit: Yes (4) Venous insufficiency of both lower extremities SNOMED Code(s): 307827629 ICD Code: I87.2 - VENOUS INSUFFICIENCY (CHRONIC) (PERIPHERAL) Status: Chronic Current Visit: No (5) Morbid obesity with BMI of 50.0-59.9, adult SNOMED Code(s): 918201399 ICD Code: E66.01 - MORBID (SEVERE) OBESITY DUE TO EXCESS CALORIES; Z68.43 - BODY MASS INDEX (BMI) 50-59.9 , ADULT Status: Chronic Current Visit: No (6) Hx MRSA infection SNOMED Code(s): 271359822 ICD Code: Z86.14 - PERSONAL HISTORY OF METHICILLIN RESIS STAPH INFECTION Status: Chronic Current Visit: No - Patient Summary/Data Consults: Consultations 07/27/17 07:00 PT Evaluation and Treatment [CONS] Routine Please Evaluate and Treat. PT Reason for Consult: Strengthening This query below is only for informational purposes and is not editable. Admission Diagnosis/Problem: CHF, Congestive heart failure Hospital Course: Ms. Menendez is a 76-year-old woman who had recent hospitalization in [place], found to have C. difficile diarrhea. She was placed on a one-month course of oral antibiotic therapy with vancomycin. For a few days prior to this admission noted progressive increase in shortness breath as well as significant peripheral edema. She has had a long-standing history of peripheral edema with venous stasis. She was found to be hypoxic on admission, secondary to pulmonary edema, which was noted on chest x-ray. She had had a recent echocardiogram in [place] which showed preserved left ventricular function and she was felt to have an element of diastolic dysfunction causing congestive heart failure. She was given supplemental oxygen and started on IV diuretic therapy with furosemide 20 mg 3 times daily. Over the course of the next several days of hospitalization she had improvement in her peripheral edema but certainly not total resolution. Shortness of breath and hypoxia improved with diuresis and by the time of discharge was not requiring supplemental oxygen. On initial assessment in the emergency department was found to have a urinary tract infection and was treated with a three-day course of IV Rocephin. Urine cultures grew out 2 types of Escherichia coli both sensitive to the ceftriaxone. Because of weakness she will be discharged to the long-term for restorative physical therapy and occupational therapy. She will continue on twice daily oral diuretic therapy with furosemide 40 milligrams twice a day. Activity will be as tolerated and she will be on a strict 2 g sodium diet. Follow-up appointment will be scheduled with Dr. Mahan for ongoing management of venous stasis and skin breakdown on both lower extremities. Recovery studies will be obtained on August 04; [facility]. She will be weighed weekly to monitor ongoing fluid status. Vancomycin will be continued for an additional 8 days to complete her one-month course of therapy. - Patient Instructions Diet: Low Sodium Activity: As Tolerated Other/Special Instructions: Daily physical therapy and occupational therapy while at the long-term. Maintain a strict 2 g sodium diet. Please weigh patient weekly. Follow-up laboratory study on August 04; [facility]. Please schedule follow-up appointment with Dr. Mahan early next week. - Discharge Plan Prescriptions/Med Rec: Furosemide [Lasix Oral Soln] 40 mg PO BID #60 ml Vancomycin [Vancocin 250 MG/5 ML Soln] 250 mg PO QID #160 ml Home Medications: Home Meds Acetaminophen [Tylenol] 650 mg PO TID 07/15/16 [History] Furosemide [Lasix Oral Soln] 40 mg PO BID #60 ml 07/30/17 [Rx] Vancomycin [Vancocin 250 MG/5 ML Soln] 250 mg PO QID #160 ml 07/30/17 [Rx] - Patient Data Vitals - Most Recent: Last Vital Signs Temp 98.5 F 07/30/17 07:08 Pulse 94 07/30/17 07:08 Resp 20 07/30/17 07:08 BP 157/74 H 07/30/17 07:08 Pulse Ox 92 L 07/30/17 07:08 Weight - Most Recent: 311 lb 8 oz I&O - Last 24 hours: Intake & Output 07/29/17 07/30/17 07/30/17 22:59 06:59 14:59 Intake Total 690 440 Output Total 300 600 600 Balance -300 90 -160 Lab Results - Last 24 hrs: Laboratory Results - last 24 hr 07/29/17 07/30/17 Range/Units 16:53 05:00 Sodium 145 (140-148) mmol/L Potassium 4.5 4.6 (3.6-5.2) mmol/L Chloride 107 (100-108) mmol/L Carbon Dioxide 31 (21-32) mmol/L Anion Gap 6.8 (5.0-14.0) mmol/L BUN 32 H (7-18) mg/dL Creatinine 1.3 H (0.6-1.0) mg/dL Est Cr Clr Drug Dosing 32.02 mL/min Estimated GFR (MDRD) 40 L (>60) Glucose 113 H (74-106) mg/dL Calcium 8.6 (8.5-10.1) mg/dL Med Orders - Current: Current Medications Acetaminophen (Tylenol) 650 mg PO Q4H PRN PRN Reason: pain Last Admin: 07/30/17 09:03 Dose: 650 mg Enoxaparin Sodium (Lovenox) 40 mg SUBCUT DAILY [facility] Last Admin: 07/30/17 09:03 Dose: 40 mg Furosemide (Lasix Oral Soln) 40 mg PO BID [facility] Last Admin: 07/30/17 09:02 Dose: 40 mg Morphine Sulfate (Morphine 10 Mg/0.5 Ml Oral Syringe) 5 mg PO Q4H PRN PRN Reason: Pain Last Admin: 07/30/17 02:41 Dose: 5 mg Ondansetron HCl (Zofran) 4 mg IV Q6H PRN PRN Reason: Nausea/Vomiting Sodium Chloride (Saline Flush) 10 ml FLUSH ASDIRECTED PRN PRN Reason: Keep Vein Open Last Admin: 07/24/17 18:23 Dose: 10 ml Vancomycin HCl (Vancocin 250 Mg/5 Ml Soln) 250 mg PO QID [facility] Last Admin: 07/30/17 10:02 Dose: 250 mg Discontinued Medications Furosemide (Lasix) 60 mg IVPUSH ONETIME ONE Stop: 07/24/17 18:02 Last Admin: 07/24/17 18:22 Dose: 60 mg Furosemide (Lasix) 40 mg IVPUSH Q8H [facility] Last Admin: 07/25/17 01:51 Dose: 40 mg Furosemide (Lasix) 20 mg IVPUSH Q8H [facility] Last Admin: 07/26/17 09:26 Dose: 20 mg Furosemide (Lasix) 40 mg IVPUSH ONETIME ONE Stop: 07/26/17 10:01 Last Admin: 07/26/17 10:35 Dose: 20 mg Furosemide (Lasix) 20 mg IVPUSH Q8H [facility] Last Admin: 07/29/17 01:56 Dose: 20 mg Ceftriaxone Sodium 1 gm/ (Sodium Chloride) 50 mls @ 100 mls/hr IV Q24H [facility] Last Admin: 07/28/17 09:01 Dose: 100 mls/hr Sodium Polystyrene Sulfonate (Kayexalate) 30 gm PO ONETIME ONE Stop: 07/29/17 09:01 Last Admin: 07/29/17 08:59 Dose: 30 gm Vancomycin HCl (Vancomycin) Confirm Administered Dose 1,000 mg .ROUTE .STK-MED ONE Stop: 07/24/17 21:24 Last Admin: 07/24/17 22:01 Dose: Not Given *Q Meaningful Use (DIS) - VTE *Q VTE Criteria *Q: - Stroke *Q Stroke Criteria *Q: - AMI *Q AMI Criteria *Q:
[2017-07-30 11:12] VITALS: BP 154/73
== END 2017-07-30 13:40 | DRG 292 ==
LOC: JP.ED 17:03 → JP.MS 19:19
PROVIDERS: ADMIT Internal Medicine; ATTEND Hospitalist
DX: I50.33 Acute on chronic diastolic (congestive) heart failure (principal); A04.72 Enterocolitis due to Clostridium difficile, not specified as recurrent; N30.00 Acute cystitis without hematuria; Z68.43 Body mass index [BMI] 50.0-59.9, adult; R09.02 Hypoxemia; N18.3 Chronic kidney disease, stage 3 (moderate); R06.02 Shortness of breath; R60.9 Edema, unspecified; B96.20 Unspecified Escherichia coli [E. coli] as the cause of diseases classified elsewhere; I87.2 Venous insufficiency (chronic) (peripheral); E66.01 Morbid (severe) obesity due to excess calories; Z86.14 Personal history of Methicillin resistant Staphylococcus aureus infection; M54.9 Dorsalgia, unspecified; G89.29 Other chronic pain; Z85.42 Personal history of malignant neoplasm of other parts of uterus; Z85.528 Personal history of other malignant neoplasm of kidney; H35.30 Unspecified macular degeneration; H54.7 Unspecified visual loss; H91.90 Unspecified hearing loss, unspecified ear; Z88.6 Allergy status to analgesic agent; Z88.5 Allergy status to narcotic agent; Z91.018 Allergy to other foods; Z88.8 Allergy status to other drugs, medicaments and biological substances; Z91.09 Other allergy status, other than to drugs and biological substances
CPT/HCPCS: 36415; 51702; 71045 ×2; 80053; 81001; 83605; 83880; 84484; 85025; 86140; 87086; 87088 ×2; 87186 ×2; 96374; 99285; J1940; J7050; 80048; 83735; 84132; 85018; 85027; 97110-GP; 97162-GP; 97530-GP; 97535-GP; A9270-GY; J0696; J1650

== ENCOUNTER 2017-10-26 15:00 | Emergency (ER) | payer MEDICARE, BC ==
--- NOTE | 2017-10-26 15:54 | EDM.PDOC ---
ED HPI GENERAL MEDICAL PROBLEM - General Chief Complaint: Cardiovascular Problem Stated Complaint: HIGH BLOOD PRESSURE Time Seen by Provider: 10/26/17 15:51 Source of Information: Reports: Patient, Old Records, RN History Limitations: Reports: No Limitations - History of Present Illness INITIAL COMMENTS - FREE TEXT/NARRATIVE: 77 yo female sent to the ER by her home health nurse for HTN. Was hypertensive at home to just over 200 systolic. Reports some CP here, thinks its her GERD. Onset: Today Onset Date: 10/26/17 Duration: Hour(s): Location: Reports: Chest Quality: Reports: Burning Severity: Mild Improves with: Reports: Other (Usually Tums) Worsens with: Reports: Other (uncertain) Context: Reports: Other (Has risk factors for CAD) Associated Symptoms: Reports: Chest Pain. Denies: Diaphoresis, Fever/Chills, Nausea/Vomiting, Shortness of Breath Treatments FURNACE FEEDER: Reports: Other (see below) (none) Chest Pain Score (Numeric/FACES): 3 - Related Data Allergies Allergy/AdvReac Type Severity Reaction Status Date / Time oxycodone HCl [From Roxicet] Allergy Severe Difficulty Verified 07/24/17 20:29 Breathing acetaminophen [From Roxicet] Allergy Shortness Verified 07/24/17 20:29 of Breath amlodipine besylate Allergy Pain Verified 07/24/17 20:29 [From Norvasc] hydromorphone [From Dilaudid] Allergy Swelling Verified 07/24/17 20:29 oxycodone [From Roxicet] Allergy Shortness Verified 07/24/17 20:29 of Breath propranolol HCl Allergy Shortness Verified 07/24/17 20:29 [From Inderal LA] of Breath quinidine Allergy Rash Verified 07/24/17 20:29 verapamil Allergy Ringing in Verified 07/24/17 20:29 the Ears amoxicillin [Amoxicillin] AdvReac Nausea Verified 07/24/17 20:29 ibuprofen AdvReac Anxiety Verified 07/24/17 20:29 lisinopril AdvReac Pain Verified 07/24/17 20:29 omeprazole AdvReac Diarrhea Verified 07/24/17 20:29 tramadol AdvReac Anxiety Verified 07/24/17 20:29 magnesium stearate Allergy Severe Difficulty Uncoded 07/24/17 20:29 Breathing cats Allergy Blurred Uncoded 07/24/17 20:29 Vision orange juice Allergy Diarrhea Uncoded 07/24/17 20:29 Home Meds: Home Meds Acetaminophen [Tylenol] 650 mg PO TID 07/15/16 [History] Furosemide [Lasix Oral Soln] 40 mg PO BID #60 ml 07/30/17 [Rx] Past Medical History HEENT History: Reports: Hard of Hearing, Impaired Vision, Macular Degeneration Cardiovascular History: Reports: Hypertension Respiratory History: Reports: None Gastrointestinal History: Reports: GERD, Irritable Bowel Syndrome Genitourinary History: Reports: Renal Calculus Other Genitourinary History: kidney cancer 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: Other OB/BYN History: uterine cancer Musculoskeletal History: Reports: Back Pain, Chronic Neurological History: Reports: None Psychiatric History: Reports: None Endocrine/Metabolic History: Reports: Obesity/BMI 30+ Hematologic History: Reports: None Immunologic History: Reports: None Oncologic (Cancer) History: Reports: Uterine, Other (See Below) Other Oncologic History: KIDNEY CANCER Dermatologic History: Reports: Cellulitis, Other (See Below) Other Dermatologic History: cellulitis left leg - Infectious Disease History Infectious Disease History: Reports: C-Difficile, Chicken Pox, Shingles - Past Surgical History Cardiovascular Surgical History: Reports: Percutaneous Transluminal Angioplasty GI Surgical History: Reports: Cholecystectomy Female Surgical History: Reports: Hysterectomy Musculoskeletal Surgical History: Reports: Other (See Below) Other Musculoskeletal Surgeries/Procedures:: back surgery on 06/05/17 in [facility] for a total of 4 back surgeries Social & Family History - Family History Family Medical History: Noncontributory HEENT: Reports: Cataract, Glaucoma, Impaired Vision, Macular Degeneration Cardiac: Reports: CAD, Hypertension, VT, Pacemaker Respiratory: Reports: None GI: Reports: GERD : Reports: None OBGYN: Reports: None Musculoskeletal: Reports: None Neurological: Reports: CVA Psychiatric: Reports: None Endocrine/Metabolic: Reports: Diabetes, type II Hematologic: Reports: None Immunologic: Reports: None Dermatologic: Reports: None Oncologic: Reports: Colon, Uterine - Tobacco Use Smoking Status *Q: Never Smoker Second Hand Smoke Exposure: No - Caffeine Use Caffeine Use: Reports: None - Alcohol Use Days Per Week of Alcohol Use: 0 - Recreational Drug Use Recreational Drug Use: No ED ROS GENERAL - Review of Systems Review Of Systems: See Below Constitutional: Reports: No Symptoms HEENT: Reports: No Symptoms Respiratory: Reports: No Symptoms Cardiovascular: Reports: Chest Pain Endocrine: Reports: No Symptoms GI/Abdominal: Reports: No Symptoms : Reports: No Symptoms Musculoskeletal: Reports: No Symptoms Skin: Reports: No Symptoms Neurological: Reports: No Symptoms Psychiatric: Reports: No Symptoms ED EXAM, GENERAL - Physical Exam Exam: See Below Exam Limited By: No Limitations General Appearance: Alert, WD/WN, No Apparent Distress, Obese Eye Exam: Bilateral Eye: Normal Inspection Ears: Normal External Exam, Normal Canal, Hearing Grossly Normal Ear Exam: Bilateral Ear: Auricle Normal, Canal Normal Nose: Normal Inspection, Normal Mucosa, No Blood Throat/Mouth: Normal Inspection, Normal Lips, Normal Oropharynx, Normal Voice, No Airway Compromise Head: Atraumatic, Normocephalic Neck: Normal Inspection Respiratory/Chest: No Respiratory Distress, Lungs Clear, Normal Breath Sounds, No Accessory Muscle Use Cardiovascular: Irregularly Irregular GI/Abdominal: Normal Bowel Sounds, Soft, Non-Tender Extremities: Normal Inspection, Normal Range of Motion, Non-Tender, Pedal Edema. No: No Pedal Edema Neurological: Alert, Oriented, CN II-XII Intact, Normal Cognition, No Motor/ Sensory Deficits Psychiatric: Normal Affect, Normal Mood Skin Exam: Warm, Dry, Intact, Normal Color, No Rash EKG INTERPRETATION EKG Date: 10/26/17 Time: 15:55 Rhythm: NSR Rate (Beats/Min): 106 Angela: Normal P-Wave: Present QRS: Normal ST-T: Normal QT: Normal Comparison: Change From Previous EKG EKG Interpretation Comments: Frequent unifocal PVC's, new since 04/19. Course - Vital Signs Text/Narrative:: Wanted to give this patient an ARB for her HTN with a hx of CHF, patient declined. Afraid of allergy. Last Recorded V/S: Last Vital Signs Temp 36.2 C 10/26/17 15:31 Pulse 116 H 10/26/17 16:27 Resp 18 10/26/17 16:27 BP 170/126 H 10/26/17 16:27 Pulse Ox 96 10/26/17 16:27 - Orders/Labs/Meds Orders: Active Orders 24 hr Category Date Time Status Cardiac Monitoring [RC] .As Directed Care 10/26/17 16:19 Active EKG Documentation Completion [RC] ASDIRECTED Care 10/26/17 15:47 Active UA W/MICROSCOPIC [URIN] Stat Lab 10/26/17 16:27 Ordered EKG 12 Lead [EK] Routine Ther 10/26/17 15:47 Ordered Labs: Laboratory Tests 10/26/17 10/26/17 10/26/17 Range/Units 16:12 16:12 16:12 WBC 9.5 (4.5-11.0) K/uL RBC 5.60 H (3.30-5.50) M/uL Hgb 13.7 D (12.0-15.0) g/dL Hct 45.1 (36.0-48.0) % MCV 81 (80-98) fL MCH 25 L (27-31) pg MCHC 30 L (32-36) % Plt Count 238 (150-400) K/uL Sodium 144 (140-148) mmol/L Potassium 3.8 (3.6-5.2) mmol/L Chloride 105 (100-108) mmol/L Carbon Dioxide 30 (21-32) mmol/L Anion Gap 9.3 (5.0-14.0) mmol/L BUN 25 H (7-18) mg/dL Creatinine 1.3 H (0.6-1.0) mg/dL Est Cr Clr Drug Dosing 31.29 mL/min Estimated GFR (MDRD) 40 L (>60) Glucose 167 H (74-106) mg/dL Calcium 9.2 (8.5-10.1) mg/dL Magnesium 2.1 (1.8-2.4) mg/dL Troponin I < 0.017 (0.000-0.056) ng/mL Urine Color Urine Appearance Urine pH (4.5-8.0) Ur Specific Roland (1.008-1.030) Urine Protein (NEGATIVE) mg/dL Urine Glucose (UA) (NEGATIVE) mg/dL Urine Ketones (NEGATIVE) mg/dL Urine Occult Blood (NEGATIVE) Urine Nitrite (NEGATIVE) Urine Bilirubin (NEGATIVE) Urine Urobilinogen (NORMAL) mg/dL Ur Leukocyte Esterase (NEGATIVE) Urine RBC (0-5) Urine WBC (0-5) Ur Epithelial Cells Amorphous Sediment Urine Bacteria Urine Mucus 10/26/17 Range/Units 16:27 WBC (4.5-11.0) K/uL RBC (3.30-5.50) M/uL Hgb (12.0-15.0) g/dL Hct (36.0-48.0) % MCV (80-98) fL MCH (27-31) pg MCHC (32-36) % Plt Count (150-400) K/uL Sodium (140-148) mmol/L Potassium (3.6-5.2) mmol/L Chloride (100-108) mmol/L Carbon Dioxide (21-32) mmol/L Anion Gap (5.0-14.0) mmol/L BUN (7-18) mg/dL Creatinine (0.6-1.0) mg/dL Est Cr Clr Drug Dosing mL/min Estimated GFR (MDRD) (>60) Glucose (74-106) mg/dL Calcium (8.5-10.1) mg/dL Magnesium (1.8-2.4) mg/dL Troponin I (0.000-0.056) ng/mL Urine Color Yellow Urine Appearance Slightly cloudy Urine pH 7.0 (4.5-8.0) Ur Specific Roland 1.005 L (1.008-1.030) Urine Protein Negative (NEGATIVE) mg/dL Urine Glucose (UA) Normal (NEGATIVE) mg/dL Urine Ketones Negative (NEGATIVE) mg/dL Urine Occult Blood Moderate (NEGATIVE) Urine Nitrite Negative (NEGATIVE) Urine Bilirubin Negative (NEGATIVE) Urine Urobilinogen Normal (NORMAL) mg/dL Ur Leukocyte Esterase Negative (NEGATIVE) Urine RBC 5-10 H (0-5) Urine WBC 0-5 (0-5) Ur Epithelial Cells Few Amorphous Sediment Not seen Urine Bacteria Not seen Urine Mucus Not seen Meds: Medications Discontinued Medications Generic Name Dose Route Start Last Admin Trade Name Eve PRN Reason Stop Dose Admin Calcium Carbonate/Glycine 1,000 mg 10/26/17 16:08 10/26/17 16:46 Tums PO 10/26/17 16:09 1,000 mg ONETIME ONE Administration Potassium Chloride 40 meq 10/26/17 16:42 10/26/17 16:46 Klor-Con M20 PO 10/26/17 16:43 40 meq ONETIME ONE Administration Departure - Departure Time of Disposition: 16:51 Disposition: Home, Self-Care 01 Condition: Fair Clinical Impression: Frequent unifocal PVCs HTN (hypertension) Qualifiers: Hypertension type: essential hypertension Qualified Code(s): I10 - Essential ( primary) hypertension Referrals: Leadbetter,Xander, MD [Primary Care Provider] - Forms: ED Department Discharge - My Orders Last 24 Hours: My Active Orders 10/26/17 15:47 EKG Documentation Completion [RC] ASDIRECTED EKG 12 Lead [EK] Routine 10/26/17 16:19 Cardiac Monitoring [RC] .As Directed 10/26/17 16:27 UA W/MICROSCOPIC [URIN] Stat - Assessment/Plan Last 24 Hours: My Active Orders 10/26/17 15:47 EKG Documentation Completion [RC] ASDIRECTED EKG 12 Lead [EK] Routine 10/26/17 16:19 Cardiac Monitoring [RC] .As Directed 10/26/17 16:27 UA W/MICROSCOPIC [URIN] Stat
[2017-10-26] MEDS ORDERED: Calcium Carbonate 500 MG Tab.Chew PO ONE (16:08)
[2017-10-26] MEDS ORDERED: Potassium Chloride 20 MEQ Tab.ER PO ONE (16:42)
[2017-10-26 17:04] VITALS: BP 179/112
== END 2017-10-26 17:24 | disposition home or self-care (01) ==
LOC: JP.ED 15:00
DX: I49.3 Ventricular premature depolarization (principal); I10 Essential (primary) hypertension; Z88.5 Allergy status to narcotic agent; Z88.6 Allergy status to analgesic agent; Z88.8 Allergy status to other drugs, medicaments and biological substances; Z91.048 Other nonmedicinal substance allergy status; Z79.899 Other long term (current) drug therapy
CPT/HCPCS: 36415; 80048; 81001; 83735; 84484; 85027; 93005; 99283; A9270

== ENCOUNTER 2019-01-31 20:48 | Emergency (ER) | payer OTHER, MEDICARE, BC ==
[2019-01-31] MEDS ORDERED: Cyclobenzaprine 10 MG Tab PO ONE (21:41)
--- NOTE | 2019-01-31 21:54 | EDM.PDOC ---
ED HPI GENERAL MEDICAL PROBLEM - General Chief Complaint: Neck Problem Stated Complaint: ILLNESS Time Seen by Provider: 01/31/19 21:10 Source of Information: Reports: Patient, Family History Limitations: Reports: No Limitations - History of Present Illness INITIAL COMMENTS - FREE TEXT/NARRATIVE: Alert 78 year old female present with for evaluation of left neck and upper arm pain. Patient had arm pain yesterday when she went to confucianist. Walking , eating and physical activity did not worsen her symptoms of pain in neck neck or left arm. Patient denies recent fall or injury. Patient did not have neck pain yesterday. Patient woke up this am with left neck and arm pain. Patient was concerned she may have a clot vs lyme disease or heart concern. Patient was evaluated 3-4 years ago at the [facility] and had a normal coronary vascular study. Patient states blood pressure medications cause pain for her and her sister. Patient does take her lasix for blood pressure and leg swelling. Patient noted worsening left neck and arm pain this evening. She took ASA 650mg at 6:30pm without improvement of pain. Patient present with her due to left neck and arm pain that did not improve with ASA this evening. Patient has a very extensive list of medication allergies and reactions including Ibuprofen, Tylenol causes elevation in blood pressure, BP medications cause pain and severe allergy to Magnesium Stearate (which is a common inactive ingredient in tablets/capsules per patient and ). Patient and state blood pressure in clinic runs 120s over 80s and at time 100/70s, therefore, they believe elevated blood pressure is due to white coat syndrome and pain concerns. They do not wish to address blood pressure readings tonight. left arm Pain Score (Numeric/FACES): 3 left neck Pain Score (Numeric/FACES): 3 - Related Data Allergies Allergy/AdvReac Type Severity Reaction Status Date / Time oxycodone HCl [From Roxicet] Allergy Severe Difficulty Verified 07/24/17 20:29 Breathing acetaminophen [From Roxicet] Allergy Shortness Verified 07/24/17 20:29 of Breath amlodipine besylate Allergy Pain Verified 07/24/17 20:29 [From Norvasc] gabapentin Allergy Dizziness Verified 01/31/19 20:58 hydromorphone [From Dilaudid] Allergy Swelling Verified 07/24/17 20:29 oxycodone [From Roxicet] Allergy Shortness Verified 07/24/17 20:29 of Breath propranolol HCl Allergy Shortness Verified 07/24/17 20:29 [From Inderal LA] of Breath quinidine Allergy Rash Verified 07/24/17 20:29 verapamil Allergy Ringing in Verified 07/24/17 20:29 the Ears amoxicillin [Amoxicillin] AdvReac Nausea Verified 07/24/17 20:29 ibuprofen AdvReac Anxiety Verified 07/24/17 20:29 lisinopril AdvReac Pain Verified 07/24/17 20:29 omeprazole AdvReac Diarrhea Verified 07/24/17 20:29 tramadol AdvReac Anxiety Verified 07/24/17 20:29 magnesium stearate Allergy Severe Difficulty Uncoded 07/24/17 20:29 Breathing cats Allergy Blurred Uncoded 07/24/17 20:29 Vision orange juice Allergy Diarrhea Uncoded 07/24/17 20:29 Home Meds: Home Meds Cyclobenzaprine [Flexeril] 5 - 10 mg PO TID PRN 5 Days #15 tab 01/31/19 [Rx] Furosemide [Lasix Oral Soln] 15 mg PO DAILY 01/31/19 [History] Past Medical History HEENT History: Reports: Hard of Hearing, Impaired Vision, Macular Degeneration Cardiovascular History: Reports: Hypertension Respiratory History: Reports: None Gastrointestinal History: Reports: GERD, Irritable Bowel Syndrome Genitourinary History: Reports: Renal Calculus Other Genitourinary History: kidney cancer [employer] History: Reports: Other [employer] History: uterine cancer Musculoskeletal History: Reports: Back Pain, Chronic Neurological History: Reports: None Psychiatric History: Reports: None Endocrine/Metabolic History: Reports: Obesity/BMI 30+ Hematologic History: Reports: None Immunologic History: Reports: None Oncologic (Cancer) History: Reports: Uterine, Other (See Below) Other Oncologic History: KIDNEY CANCER Dermatologic History: Reports: Cellulitis, Other (See Below) Other Dermatologic History: cellulitis left leg - Infectious Disease History Infectious Disease History: Reports: C-Difficile, Chicken Pox, Shingles - Past Surgical History Cardiovascular Surgical History: Reports: Percutaneous Transluminal Angioplasty GI Surgical History: Reports: Cholecystectomy Female Surgical History: Reports: Hysterectomy Neurological Surgical History: Reports: Lumbar Spine Musculoskeletal Surgical History: Reports: Other (See Below) Other Musculoskeletal Surgeries/Procedures:: back surgery on 06/05/17 in [facility] for a total of 4 back surgeries Social & Family History - Family History Family Medical History: Noncontributory HEENT: Reports: Cataract, Glaucoma, Impaired Vision, Macular Degeneration Cardiac: Reports: CAD, Hypertension, [place], Pacemaker Respiratory: Reports: None GI: Reports: GERD : Reports: None OBGYN: Reports: None Musculoskeletal: Reports: None Neurological: Reports: CVA Psychiatric: Reports: None Endocrine/Metabolic: Reports: Diabetes, type II Hematologic: Reports: None Immunologic: Reports: None Dermatologic: Reports: None Oncologic: Reports: Colon, Uterine - Tobacco Use Smoking Status *Q: Never Smoker - Caffeine Use Caffeine Use: Reports: None - Recreational Drug Use Recreational Drug Use: No ED ROS GENERAL - Review of Systems Review Of Systems: ROS reveals no pertinent complaints other than HPI. Respiratory: Reports: No Symptoms Cardiovascular: Reports: No Symptoms, Edema Endocrine: Reports: No Symptoms GI/Abdominal: Reports: No Symptoms : Reports: No Symptoms Musculoskeletal: Reports: Neck Pain, Shoulder Pain, Arm Pain (upper arm pain) Skin: Reports: No Symptoms Neurological: Reports: No Symptoms Psychiatric: Reports: No Symptoms, Agitation (white coat syndrome (elevated blood pressure at medical visits)) Hematologic/Lymphatic: Reports: No Symptoms Immunologic: Reports: No Symptoms ED EXAM, GENERAL - Physical Exam Exam: See Below Exam Limited By: No Limitations General Appearance: Alert, WD/WN, No Apparent Distress Eye Exam: Bilateral Eye: EOMI, PERRL Ears: Normal External Exam, Hearing Grossly Normal Nose: Normal Inspection, Normal Mucosa Throat/Mouth: Normal Inspection, Normal Lips, Normal Voice, No Airway Compromise Head: Normocephalic Neck: Normal Inspection, Supple, Full Range of Motion, Tender Lateral (left lateral pain to palpation and movement ) Respiratory/Chest: No Respiratory Distress, Normal Breath Sounds Cardiovascular: Normal Peripheral Pulses, Regular Rate, Rhythm, Systolic Murmur , Other (Very high blood pressure (patient and state normal 120 or 80s) White coat syndrome or due to pain.). No: No Edema (significant edema bilateral legs ) GI/Abdominal: Normal Bowel Sounds, Soft, Non-Tender Neurological: Alert, Oriented, CN II-XII Intact, Normal Cognition, No Motor/ Sensory Deficits Psychiatric: Normal Affect, Normal Mood (very argumentative with treatment options for patient's pain concern and verbalizes numerous medication allergies and intolerances ) Skin Exam: Warm, Dry, Intact, Normal Color, No Rash EKG INTERPRETATION EKG Date: 01/31/19 Time: 20:45 Rhythm: Other (Sinus Tachycardia with PVC) Rate (Beats/Min): 103 P-Wave: Present QRS: Normal ST-T: Other (non specific. No acute changes) QT: Normal Comparison: Other: (Improved resolution of Trigeminy with Sinus Tachycardia) Course - Vital Signs Last Recorded V/S: Last Vital Signs Temp 36.1 C 01/31/19 20:55 Pulse 104 H 01/31/19 21:26 Resp 16 01/31/19 21:26 BP 181/121 H 01/31/19 21:26 Pulse Ox 92 L 01/31/19 21:26 - Orders/Labs/Meds Orders: Active Orders 24 hr Category Date Time Status EKG Documentation Completion [RC] ASDIRECTED Care 01/31/19 21:41 Active BABESIA MICROTI ANTIBODY PANEL Urgent Lab 01/31/19 21:48 Ordered HUMAN GRANULOCYTIC ISABELLE-HGE Urgent Lab 01/31/19 21:48 Ordered LYME, TOTAL AB TEST/REFLEX Routine Lab 01/31/19 21:48 Ordered EKG 12 Lead [EK] Routine Ther 01/31/19 21:41 Ordered Meds: Medications Discontinued Medications Generic Name Dose Route Start Last Admin Trade Name Freq PRN Reason Stop Dose Admin Cyclobenzaprine HCl 10 mg 01/31/19 21:41 01/31/19 21:55 Flexeril PO 01/31/19 21:42 10 mg ONETIME ONE Administration - Re-Assessments/Exams Free Text/Narrative Re-Assessment/Exam: Chart Reviewed: Cardiac Echo November 2017, no acute concerns. EKG October 2017 Trigeminy resolved on today's EKG Very high blood pressure readings ranging from 230-180 SBP and 125-110 DBP. Patient and are very resistant to any treatment recommendations and information regarding elevated blood pressure. Patient and strongly believe that patient may have lyme disease causing her neck and arm pain. Patient can not confirm fever, headache, weakness, rash, joint pain or any symptom that would correlated with tick borne illness. Patient does not want Tylenol due to causes elevation in her blood pressure. Patient is allergic to Tramadol, Toradol and Ibuprofen. Patient wants to know what is causing her pain. Patient has pain to palpation over the deltoid muscle insertion over proximal upper arm, no left shoulder joint pain and left lateral neck which increases with movement. Patient decides that Flexeril would be ok to try which may make her sleepy, help with pain and decrease blood pressure. Discussed pain concerns likely due to muscle strain and will need time, stretching, ice and heat to improve. Flexeril may help but not need if if not improving pain concerns. Tick Panel and Lyme Blood tests drawn to be reviewed with PCP later this week along with very high blood pressure readings. 01/31/19 22:00 Departure - Departure Time of Disposition: 22:30 Disposition: Home, Self-Care 01 Clinical Impression: Strain of neck muscle, Muscle strain, upper arm HTN (hypertension) Qualifiers: Hypertension type: essential hypertension Qualified Code(s): I10 - Essential ( primary) hypertension - Discharge Information Prescriptions: Cyclobenzaprine [Flexeril] 5 - 10 mg PO TID PRN 5 Days #15 tab PRN Reason: Muscle Spasm Instructions: Hypertension, Cervical Strain and Sprain Rehab-SportsMed, Cryotherapy, [id number], How to Take Your Blood Pressure, [id number], Cervical Sprain, [id number], Muscle Strain, Cyclobenzaprine tablets Referrals: Xander Christie MD [Primary Care Provider] - 3 Days Forms: ED Department Discharge Additional Instructions: NECK STRAIN 1. GENTLE STRETCHING DIRECTED 2. MUSCLE RELAXANT (FLEXERIL) (if needed/offered) DIRECTED FOR PAIN DUE TO MUSCLE SPASMS. 3. Ice 15-20 minutes 2-3 times per day alternate with heat 15-20 minutes then stretching per instructions. 4. FOLLOW UP IN PCP CLINIC of choice for recheck in 5-7 days if not improving and discuss Tick Panel and Lyme Disease blood test drawn during visit. Discharge Instructions Neck Strain You have been seen today for a neck sprain or strain. Neck strains usually result from an injury to the neck. Car accidents, contact sports, and falls are common causes of neck strain. Sometimes your neck can start to hurt because of increased activity, muscle tension, an abnormal sleeping position, or because of other problems like arthritis in the neck. Neck pain usually comes from injured muscles and ligaments. Sometimes there is a herniated (slipped) disc. We do not usually do MRI scans to look for these right away, since most herniated discs will get better on their own with time. Today, we did not find any evidence that your neck pain was caused by a serious or dangerous condition. However, sometimes symptoms develop over time and cannot be found during an emergency visit, so it is very important that you follow up with your primary provider. Generally, every Emergency Department visit should have a follow-up clinic visit with either a primary or a specialty clinic/provider. Please follow-up as instructed by your emergency provider today. Return to the Emergency Department if: You have increasing pain in your neck. You develop difficulty swallowing or breathing. You have numbness, weakness, or trouble moving your arms or legs. You have severe dizziness and difficulty walking. You are unable to control your bladder or bowels. You develop severe headache or ringing in the ears. What can I do to help myself at home? If you had an injury, use cold for the first 1-2 days. Cold helps relieve pain and reduce inflammation. Apply ice packs to the neck or areas of pain every 1-2 hours for 20 minutes at a time. Place a towel or cloth between your skin and the ice pack. After the first 2 days, using heat can help with neck pain and stiffness. You may use a warm shower or bath, warm towels on the neck, or a heating pad. Do not sleep with a heating pad, as you can be burned. Pain medications - You may take a pain medication such as Tylenol ( acetaminophen), Advil and Motrin (ibuprofen), or Aleve (naproxen). It is usually best to rest the neck for 1-2 days after an injury, then start gentle stretching exercises. It is helpful to place a small pillow under the nape of your neck to provide proper neutral positioning. You should stay active and do your usual work as much as you can, unless this involves heavy physical labor. Ask your provider if you need work restrictions. If you were given a prescription for medicine here today, be sure toread all of the information (including the package insert) that comes with your prescription. This will include important information about the medicine, its side effects, and any warnings that you need to know about. The pharmacist who fills the prescription can provide more information and answer questions you may have about the medicine. If you have questions or concerns that the pharmacist cannot address, please call or return to the Emergency Department. Remember that you can always come back to the Emergency Department if you are not able to see your regular provider in the amount of time listed above, if you get any new symptoms, or if there is anything that worries you. - Problem List & Annotations (1) HTN (hypertension) SNOMED Code(s): 38125231 Code(s): I10 - ESSENTIAL (PRIMARY) HYPERTENSION Status: Acute Current Visit: Yes Qualifiers: Hypertension type: essential hypertension Qualified Code(s): I10 - Essential (primary) hypertension (2) Muscle strain, upper arm SNOMED Code(s): 888885852, 530599806 Code(s): S46.919A - STRAIN UNSP MUSC/FASC/TEND AT SHLDR/UP ARM, UNSP ARM, INIT Status: Acute Current Visit: Yes (3) Strain of neck muscle SNOMED Code(s): 319513739 Code(s): S16.1XXA - STRAIN OF MUSCLE, FASCIA AND TENDON AT NECK LEVEL, INIT Status: Acute Current Visit: Yes - My Orders Last 24 Hours: My Active Orders 01/31/19 21:41 EKG Documentation Completion [RC] ASDIRECTED EKG 12 Lead [EK] Routine 01/31/19 21:48 BABESIA MICROTI ANTIBODY PANEL Urgent HUMAN GRANULOCYTIC ISABELLE-HGE Urgent LYME, TOTAL AB TEST/REFLEX Routine - Assessment/Plan Last 24 Hours: My Active Orders 01/31/19 21:41 EKG Documentation Completion [RC] ASDIRECTED EKG 12 Lead [EK] Routine 01/31/19 21:48 BABESIA MICROTI ANTIBODY PANEL Urgent HUMAN GRANULOCYTIC ISABELLE-HGE Urgent LYME, TOTAL AB TEST/REFLEX Routine
[2019-01-31 22:17] VITALS: BP 219/115; PULSE 91
[2019-02-03 08:09] LABS: LYME IGG/IGM AB <0.91 ISR (0.00-0.90)
[2019-02-03 13:11] LABS: BABESIA MICROTI IGG <1:10 (Neg:<1:10); BABESIA MICROTI IGM <1:10 (Neg:<1:10)
[2019-02-03 14:08] LABS: HGE IGG TITER Negative (Neg:<1:64); HGE IGM TITER Negative (Neg:<1:20)
== END 2019-01-31 23:27 | disposition home or self-care (01) ==
LOC: JP.ED 20:48
DX: S16.1XXA Strain of muscle, fascia and tendon at neck level, initial encounter (principal); S46.912A Strain of unspecified muscle, fascia and tendon at shoulder and upper arm level, left arm, initial encounter; I10 Essential (primary) hypertension; Z79.899 Other long term (current) drug therapy; Z88.5 Allergy status to narcotic agent; Z88.6 Allergy status to analgesic agent; Z88.8 Allergy status to other drugs, medicaments and biological substances; Z88.1 Allergy status to other antibiotic agents; Z91.048 Other nonmedicinal substance allergy status; Z91.018 Allergy to other foods; Z85.528 Personal history of other malignant neoplasm of kidney; X58.XXXA Exposure to other specified factors, initial encounter
CPT/HCPCS: 86666; 86753; 93005; 99283; A9270; 86618; 93010

== ENCOUNTER 2020-12-10 22:41 | Observation (INO) | payer MEDICARE, BC ==
[2020-12-10] MEDS ORDERED: Meclizine 25 MG Tab PO ONE (23:41)
[2020-12-10] MEDS ORDERED: Morphine 10 MG/ML Syringe IM ONE (23:42)
--- NOTE | 2020-12-10 23:48 | EDM.PDOC ---
ED HPI GENERAL MEDICAL PROBLEM - General Chief Complaint: Cardiovascular Problem Stated Complaint: DIZZY,HEADACHE Time Seen by Provider: 12/10/20 23:30 Source of Information: Reports: Patient, Old Records, RN History Limitations: Reports: No Limitations - History of Present Illness INITIAL COMMENTS - FREE TEXT/NARRATIVE: 80 yo female presents with her from [place] for dizziness, a MARIE, and chills. She gets her care mostly in [place], but came here not realizing we can't see their records. She has not treated herself for fever. Says her chills lasted about an hour. Has no cough, dysuria, rash or abdominal pain. Describes her dizziness as a spinning sensation. Is not dizzy now. Has not missed any her meds. Says a month ago in the clinic her BP was normal. Onset: Today Onset Date: 12/10/20 Onset Time: 19:00 Duration: Hour(s):, Constant Location: Reports: Head Quality: Reports: Ache Severity: Moderate Improves with: Reports: None Worsens with: Reports: Other (unknown) Context: Reports: Other (See HPI) Associated Symptoms: Reports: Fever/Chills (now gone), Headaches. Denies: Cough, Nausea/Vomiting, Rash, Shortness of Breath Treatments PERSONNEL CLERK: Reports: Other (see below) (none) Upper Frontal Headache Pain Score (Numeric/FACES): 5 - Related Data Allergies Allergy/AdvReac Type Severity Reaction Status Date / Time oxycodone HCl [From Roxicet] Allergy Severe Difficulty Verified 12/10/20 23:02 Breathing acetaminophen [From Roxicet] Allergy Shortness Verified 12/10/20 23:02 of Breath amlodipine besylate Allergy Pain Verified 12/10/20 23:02 [From Norvasc] gabapentin Allergy Dizziness Verified 12/10/20 23:02 hydromorphone [From Dilaudid] Allergy Swelling Verified 12/10/20 23:02 oxycodone [From Roxicet] Allergy Shortness Verified 12/10/20 23:02 of Breath propranolol HCl Allergy Shortness Verified 12/10/20 23:02 [From Inderal LA] of Breath quinidine Allergy Rash Verified 12/10/20 23:02 verapamil Allergy Ringing in Verified 12/10/20 23:02 the Ears amoxicillin [Amoxicillin] AdvReac Nausea Verified 12/10/20 23:02 ibuprofen AdvReac Anxiety Verified 12/10/20 23:02 lisinopril AdvReac Pain Verified 12/10/20 23:02 omeprazole AdvReac Diarrhea Verified 12/10/20 23:02 tramadol AdvReac Anxiety Verified 12/10/20 23:02 magnesium stearate Allergy Severe Difficulty Uncoded 12/10/20 23:02 Breathing cats Allergy Blurred Uncoded 12/10/20 23:02 Vision orange juice Allergy Diarrhea Uncoded 12/10/20 23:02 Home Meds: Home Meds Furosemide [Lasix Oral Soln] 15 mg PO DAILY 01/31/19 [History] Metoprolol Tartrate 25 mg PO BID 12/10/20 [History] Past Medical History HEENT History: Reports: Hard of Hearing, Impaired Vision, Macular Degeneration Cardiovascular History: Reports: Hypertension Respiratory History: Reports: None Gastrointestinal History: Reports: GERD, Irritable Bowel Syndrome Genitourinary History: Reports: Renal Calculus Other Genitourinary History: kidney cancer GALVANIZER History: Reports: Other GALVANIZER History: uterine cancer Musculoskeletal History: Reports: Back Pain, Chronic Neurological History: Reports: None Psychiatric History: Reports: None Endocrine/Metabolic History: Reports: Obesity/BMI 30+ Hematologic History: Reports: None Immunologic History: Reports: None Oncologic (Cancer) History: Reports: Uterine, Other (See Below) Other Oncologic History: KIDNEY CANCER Dermatologic History: Reports: Cellulitis, Other (See Below) Other Dermatologic History: cellulitis left leg - Infectious Disease History Infectious Disease History: Reports: C-Difficile, Chicken Pox, Shingles Other Infectious Disease History: No covid vaccinations - Past Surgical History HEENT Surgical History: Reports: None Cardiovascular Surgical History: Reports: Percutaneous Transluminal Angioplasty GI Surgical History: Reports: Cholecystectomy Female Surgical History: Reports: Hysterectomy Neurological Surgical History: Reports: Lumbar Spine Musculoskeletal Surgical History: Reports: Other (See Below) Other Musculoskeletal Surgeries/Procedures:: back surgery on 06/05/17 in [facility] for a total of 4 back surgeries Oncologic Surgical History: Reports: None Social & Family History - Family History Family Medical History: No Pertinent Family History HEENT: Reports: Cataract, Glaucoma, Impaired Vision, Macular Degeneration Cardiac: Reports: CAD, Hypertension, ID, Pacemaker Respiratory: Reports: None GI: Reports: GERD : Reports: None OBGYN: Reports: None Musculoskeletal: Reports: None Neurological: Reports: CVA Psychiatric: Reports: None Endocrine/Metabolic: Reports: Diabetes, type II Hematologic: Reports: None Immunologic: Reports: None Dermatologic: Reports: None Oncologic: Reports: Colon, Uterine - Tobacco Use Tobacco Use Status *Q: Never Tobacco User - Caffeine Use Caffeine Use: Reports: None - Recreational Drug Use Recreational Drug Use: No ED ROS GENERAL - Review of Systems Review Of Systems: See Below Constitutional: Reports: Chills. Denies: Fever HEENT: Reports: No Symptoms Respiratory: Denies: Shortness of Breath, Wheezing, Pleuritic Chest Pain, Cough, Sputum, Hemoptysis Cardiovascular: Reports: No Symptoms Endocrine: Reports: No Symptoms GI/Abdominal: Denies: Diarrhea, Nausea, Vomiting : Reports: No Symptoms Musculoskeletal: Reports: No Symptoms Skin: Reports: No Symptoms Neurological: Reports: Dizziness, Headache Psychiatric: Reports: No Symptoms ED EXAM, GENERAL - Physical Exam Exam: See Below Exam Limited By: No Limitations General Appearance: Alert, WD/WN, No Apparent Distress, Obese Eye Exam: Bilateral Eye: Normal Inspection Ears: Normal External Exam, Normal Canal, Hearing Grossly Normal, Normal TMs Ear Exam: Bilateral Ear: Auricle Normal, Canal Normal, TM normal Nose: Normal Inspection, No Blood Throat/Mouth: Normal Inspection, Normal Lips, Normal Oropharynx, Normal Voice, No Airway Compromise Head: Atraumatic, Normocephalic Neck: Normal Inspection Respiratory/Chest: No Respiratory Distress, Lungs Clear, Normal Breath Sounds, Chest Non-Tender Cardiovascular: Regular Rate, Rhythm, No Edema GI/Abdominal: Normal Bowel Sounds, Soft, Non-Tender Back Exam: Normal Inspection Extremities: Normal Inspection, Normal Range of Motion, Non-Tender, No Pedal Edema Neurological: Alert, Oriented, CN II-XII Intact, Normal Cognition, No Motor/Sensory Deficits Psychiatric: Normal Affect, Normal Mood Skin Exam: Warm, Dry, Intact, Normal Color, No Rash Course - Vital Signs Text/Narrative:: Dieter Simon called @ 0520h Last Recorded V/S: Last Vital Signs Temp 36.6 C 12/11/20 00:19 Pulse 96 12/11/20 05:15 Resp 16 12/11/20 00:19 BP 147/95 H 12/11/20 05:15 Pulse Ox 96 12/11/20 00:19 - Orders/Labs/Meds Orders: Active Orders 24 hr Category Date Time Status Sodium Chloride 0.9% [Saline Flush] Med 12/11/20 00:51 Active 10 ml FLUSH ASDIRECTED PRN Saline Lock Insert [OM.PC] Routine Oth 12/11/20 00:51 Ordered Medication Orders Sodium Chloride (Sodium Chloride 0.9% 10 Ml Syringe) 10 ml FLUSH ASDIRECTED PRN PRN Reason: Keep Vein Open Last Admin: 12/11/20 02:02 Dose: 10 ml Documented by: JAQUAN Labs: Laboratory Tests 12/10/20 12/10/20 12/11/20 Range/Units 23:58 23:58 00:01 WBC 8.9 (4.5-11.0) K/uL RBC 5.41 (3.30-5.50) M/uL Hgb 15.0 (12.0-15.0) g/dL Hct 48.8 H (36.0-48.0) % MCV 90 (80-98) fL MCH 28 (27-31) pg MCHC 31 L (32-36) % Plt Count 220 (150-400) K/uL Sodium 145 (140-148) mmol/L Potassium 4.5 (3.6-5.2) mmol/L Chloride 106 (100-108) mmol/L Carbon Dioxide 28 (21-32) mmol/L Anion Gap 10.6 (5.0-14.0) mmol/L BUN 25 H (7-18) mg/dL Creatinine 1.1 H (0.6-1.0) mg/dL Est Cr Clr Drug Dosing 35.22 mL/min Estimated GFR (MDRD) 48 L (>60) Glucose 147 H (74-106) mg/dL Calcium 8.8 (8.5-10.1) mg/dL Troponin I < 0.017 (0.000-0.056) ng/mL C-Reactive Protein 1.19 H (0.0-0.3) mg/dL Urine Color (YELLOW) Urine Appearance (CLEAR) Urine pH (5.0-8.0) Ur Specific [place] (1.008-1.030) Urine Protein (NEGATIVE) mg/dL Urine Glucose (UA) (NEGATIVE) mg/dL Urine Ketones (NEGATIVE) mg/dL Urine Occult Blood (NEGATIVE) Urine Nitrite (NEGATIVE) Urine Bilirubin (NEGATIVE) Urine Urobilinogen (0.2-1.0) EU/dL Ur Leukocyte Esterase (NEGATIVE) Urine RBC (0-5) Urine WBC (0-5) Ur Epithelial Cells Amorphous Sediment Urine Bacteria Urine Mucus 12/11/20 Range/Units 00:16 WBC (4.5-11.0) K/uL RBC (3.30-5.50) M/uL Hgb (12.0-15.0) g/dL Hct (36.0-48.0) % MCV (80-98) fL MCH (27-31) pg MCHC (32-36) % Plt Count (150-400) K/uL Sodium (140-148) mmol/L Potassium (3.6-5.2) mmol/L Chloride (100-108) mmol/L Carbon Dioxide (21-32) mmol/L Anion Gap (5.0-14.0) mmol/L BUN (7-18) mg/dL Creatinine (0.6-1.0) mg/dL Est Cr Clr Drug Dosing mL/min Estimated GFR (MDRD) (>60) Glucose (74-106) mg/dL Calcium (8.5-10.1) mg/dL Troponin I (0.000-0.056) ng/mL C-Reactive Protein (0.0-0.3) mg/dL Urine Color Yellow (YELLOW) Urine Appearance Clear (CLEAR) Urine pH 5.5 (5.0-8.0) Ur Specific [place] 1.025 (1.008-1.030) Urine Protein Negative (NEGATIVE) mg/dL Urine Glucose (UA) Negative (NEGATIVE) mg/dL Urine Ketones Negative (NEGATIVE) mg/dL Urine Occult Blood Small H (NEGATIVE) Urine Nitrite Negative (NEGATIVE) Urine Bilirubin Negative (NEGATIVE) Urine Urobilinogen 0.2 (0.2-1.0) EU/dL Ur Leukocyte Esterase Negative (NEGATIVE) Urine RBC 0-5 (0-5) Urine WBC 5-10 H (0-5) Ur Epithelial Cells Few Amorphous Sediment Not seen Urine Bacteria Many Urine Mucus Not seen Meds: Medications Generic Name Dose Route Start Last Admin Trade Name Freq PRN Reason Stop Dose Admin Sodium Chloride 10 ml 12/11/20 00:51 12/11/20 02:02 Sodium Chloride 0.9% 10 Ml Syringe FLUSH 10 ml ASDIRECTED PRN Administration Keep Vein Open Discontinued Medications Generic Name Dose Route Start Last Admin Trade Name Richieq PRN Reason Stop Dose Admin Diphenhydramine HCl 50 mg 12/10/20 23:50 12/10/20 23:59 Diphenhydramine 50 Mg/Ml Sdv IM 12/10/20 23:51 50 mg ONETIME ONE Administration Diphenhydramine HCl 25 mg 12/11/20 01:48 12/11/20 01:59 Diphenhydramine 50 Mg/Ml Sdv IVPUSH 12/11/20 01:49 25 mg ONETIME ONE Administration Hydralazine HCl 25 mg 12/11/20 00:51 12/11/20 01:07 Hydralazine 20 Mg/Ml Sdv IVPUSH 12/11/20 00:52 25 mg ONETIME ONE Administration Hydralazine HCl Confirm 12/11/20 01:04 12/11/20 01:16 Hydralazine 20 Mg/Ml Sdv Administered 12/11/20 01:05 Not Given Dose 20 mg .ROUTE .STK-MED ONE Hydralazine HCl 25 mg 12/11/20 04:52 12/11/20 04:59 Hydralazine 20 Mg/Ml Sdv IVPUSH 12/11/20 04:53 25 mg ONETIME ONE Administration Ketorolac Tromethamine 30 mg 12/11/20 01:47 12/11/20 02:00 Ketorolac 30 Mg/Ml Sdv IVPUSH 12/11/20 01:48 Not Given ONETIME ONE Meclizine HCl 25 mg 12/10/20 23:41 12/11/20 00:00 Meclizine 25 Mg Tab PO 12/10/20 23:42 Not Given ONETIME ONE Morphine Sulfate 6 mg 12/10/20 23:42 12/11/20 00:00 Morphine 10 Mg/Ml Syringe IM 12/10/20 23:43 6 mg ONETIME ONE Administration Prochlorperazine Edisylate 10 mg 12/11/20 03:37 12/11/20 03:43 Prochlorperazine 10 Mg/2 Ml Sdv IVPUSH 12/11/20 03:38 10 mg ONETIME ONE Administration - Radiology Interpretation Free Text/Narrative:: Head CT-nothing acute Departure - Departure Time of Disposition: 05:35 Disposition: Refer to Observation Condition: Fair Clinical Impression: HTN, goal below 140/80, Dizziness, Neck pain Headache Qualifiers: Headache type: other headache syndrome Qualified Code(s): G44.89 - Other headache syndrome Referrals: PCP,None [Primary Care Provider] - Forms: ED Department Discharge Sepsis Event Note (ED) - Evaluation Sepsis Screening Result: No Definite Risk - Focused Exam Vital Signs: Vital Signs Temp Pulse Resp BP Pulse Ox 12/11/20 05:15 96 147/95 H 12/11/20 04:40 92 210/113 H 12/11/20 03:47 89 171/95 H 12/11/20 03:37 82 153/86 H 12/11/20 02:47 73 123/71 12/11/20 02:32 84 166/89 H 12/11/20 01:16 74 191/113 H 12/11/20 00:19 36.6 C 63 16 191/110 H 96 12/10/20 22:59 36.6 C 62 16 202/106 H 94 L - My Orders Last 24 Hours: My Active Orders 12/11/20 00:51 Sodium Chloride 0.9% [Saline Flush] 10 ml FLUSH ASDIRECTED PRN Saline Lock Insert [OM.PC] Routine - Assessment/Plan Last 24 Hours: My Active Orders 12/11/20 00:51 Sodium Chloride 0.9% [Saline Flush] 10 ml FLUSH ASDIRECTED PRN Saline Lock Insert [OM.PC] Routine
[2020-12-10] MEDS ORDERED: diphenhydrAMINE 50 MG/ML SDV IM ONE (23:50)
[2020-12-11] MEDS ORDERED: Sodium Chloride 0.9% 10 ML Syringe FLUSH PRN ×2 (00:51→06:57)
[2020-12-11] MEDS ORDERED: hydrALAZINE 20 MG/ML SDV IVPUSH ONE ×2 (00:51→04:52)
[2020-12-11] MEDS ORDERED: hydrALAZINE 20 MG/ML SDV ONE (01:04)
[2020-12-11] MEDS ORDERED: Ketorolac 30 MG/ML SDV IVPUSH ONE (01:47)
[2020-12-11] MEDS ORDERED: diphenhydrAMINE 50 MG/ML SDV IVPUSH ONE (01:48)
--- NOTE | 2020-12-11 03:25 | CRLCT ---
For Patients: As a result of the Century Cures Act, medical imaging exams and procedure reports are released immediately into your electronic medical record. You may view this report before your referring provider. If you have questions, please contact your health care provider. INDICATION: Headache and dizziness TECHNIQUE: CT head without contrast. COMPARISON: None. FINDINGS: CSF spaces: Within normal limits for age. Brain parenchyma: Leigh-white differentiation is distinct. No intracranial bleed or mass effect. Mild cerebral atrophy with small amount of low-density in the deep white matter. Skull base and calvarium: The visualized paranasal sinuses and mastoid air cells demonstrate no acute or significant findings. The visualized orbits are grossly unremarkable. No skull fractures. Atherosclerosis. IMPRESSION: 1. No intracranial bleed or mass effect. 2. Cerebral atrophy with nonspecific white matter disease, likely microangiopathy. Please note that all CT scans at this facility use dose modulation, iterative reconstruction, and/or weight-based dosing when appropriate to reduce radiation dose to as low as reasonably achievable. Dictated by Suresh Lopes MD @ 12/11/2020 3:24:[address] Suresh Lopes @ Dec 11 2020 3:24AM
[2020-12-11] MEDS ORDERED: Prochlorperazine 10 MG/2 ML SDV IVPUSH ONE (03:37)
--- NOTE | 2020-12-11 06:43 | PCM.HP.2 ---
H&P History of Present Illness - General Date of Service: 12/10/20 Admit Problem/Dx: Admission Diagnosis/Problem Admission Diagnosis/Problem Hypertension Source of Information: Patient, Family ( Gio), Provider History Limitations: Reports: No Limitations - History of Present Illness Initial Comments - Free Text/Narative: Chief Complaint: dizziness/headache This is a 80 year old female presents to the ER for high blood pressure with dizziness. Report was doing well all day, then after supper develops symptoms. She reports took her daily medications of liquid Lasix and metoprolol. While in the ER blood pressure was noted to be 202/106 was given Benadry 50 mg IM at 12 am, and 25 mg IV at 2am. Morphine 6 mg IM, Hydralazine 25 mg IVP at 1 am. Blood pressure improved to 170 to 110's/ 100-70. She reports symptoms improved. At about 4 am blood pressure was 210/213, was given another dose of Hydralazine 25 mg IVP at 5 am , blood pressure now 116/79. During the course of ER - she did not have any chest pain, shortness of breath. During ER reports - dizziness, headache, neck pain (chronic) Onset of Symptoms: Reports: Today Duration of Symptoms: Reports: Hour(s):, Waxing/Waning Location: Reports: Generalized Quality: Reports: Other (dizziness, headache) Improves with: Reports: None Worsens with: Reports: None Associated Symptoms: Reports: Headaches, Other (dizziness) Upper Frontal Headache Pain Score (Numeric/FACES): 5 - Related Data Allergies/Adverse Reactions: Allergies Allergy/AdvReac Type Severity Reaction Status Date / Time oxycodone HCl [From Roxicet] Allergy Severe Difficulty Verified 12/10/20 23:02 Breathing acetaminophen [From Roxicet] Allergy Shortness Verified 12/10/20 23:02 of Breath amlodipine besylate Allergy Pain Verified 12/10/20 23:02 [From Norvasc] gabapentin Allergy Dizziness Verified 12/10/20 23:02 hydromorphone [From Dilaudid] Allergy Swelling Verified 12/10/20 23:02 oxycodone [From Roxicet] Allergy Shortness Verified 12/10/20 23:02 of Breath propranolol HCl Allergy Shortness Verified 12/10/20 23:02 [From Inderal LA] of Breath quinidine Allergy Rash Verified 12/10/20 23:02 verapamil Allergy Ringing in Verified 12/10/20 23:02 the Ears amoxicillin [Amoxicillin] AdvReac Nausea Verified 12/10/20 23:02 ibuprofen AdvReac Anxiety Verified 12/10/20 23:02 lisinopril AdvReac Pain Verified 12/10/20 23:02 omeprazole AdvReac Diarrhea Verified 12/10/20 23:02 tramadol AdvReac Anxiety Verified 12/10/20 23:02 magnesium stearate Allergy Severe Difficulty Uncoded 12/10/20 23:02 Breathing cats Allergy Blurred Uncoded 12/10/20 23:02 Vision orange juice Allergy Diarrhea Uncoded 12/10/20 23:02 Home Medications: Home Meds Furosemide [Lasix Oral Soln] 15 mg PO DAILY 01/31/19 [History] Metoprolol Tartrate 25 mg PO BID 12/10/20 [History] Past Medical History HEENT History: Reports: Hard of Hearing, Impaired Vision, Macular Degeneration Cardiovascular History: Reports: Hypertension Respiratory History: Reports: None Gastrointestinal History: Reports: GERD, Irritable Bowel Syndrome Genitourinary History: Reports: Renal Calculus Other Genitourinary History: kidney cancer 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 OB/BYN History: uterine cancer Musculoskeletal History: Reports: Back Pain, Chronic Neurological History: Reports: None Psychiatric History: Reports: None Endocrine/Metabolic History: Reports: Obesity/BMI 30+ Hematologic History: Reports: None Immunologic History: Reports: None Oncologic (Cancer) History: Reports: Uterine, Other (See Below) Other Oncologic History: KIDNEY CANCER Dermatologic History: Reports: Cellulitis, Other (See Below) Other Dermatologic History: cellulitis left leg - Infectious Disease History Infectious Disease History: Reports: C-Difficile, Chicken Pox, Shingles Other Infectious Disease History: No covid vaccinations - Past Surgical History HEENT Surgical History: Reports: None Cardiovascular Surgical History: Reports: Percutaneous Transluminal Angioplasty GI Surgical History: Reports: Cholecystectomy Female Surgical History: Reports: Hysterectomy Neurological Surgical History: Reports: Lumbar Spine Musculoskeletal Surgical History: Reports: Other (See Below) Other Musculoskeletal Surgeries/Procedures:: back surgery on 06/05/[facility] for a total of 4 back surgeries Oncologic Surgical History: Reports: None Social & Family History - Family History Family Medical History: No Pertinent Family History HEENT: Reports: Cataract, Glaucoma, Impaired Vision, Macular Degeneration Cardiac: Reports: CAD, Hypertension, LA, Pacemaker Respiratory: Reports: None GI: Reports: GERD : Reports: None OBGYN: Reports: None Musculoskeletal: Reports: None Neurological: Reports: CVA Psychiatric: Reports: None Endocrine/Metabolic: Reports: Diabetes, type II Hematologic: Reports: None Immunologic: Reports: None Dermatologic: Reports: None Oncologic: Reports: Colon, Uterine - Tobacco Use Tobacco Use Status *Q: Never Tobacco User - Caffeine Use Caffeine Use: Reports: None - Recreational Drug Use Recreational Drug Use: No - Living Situation & Occupation Living situation: Reports: , with Spouse (lives with Gio across the [address] in [place], [place]. Has 7 Sons and 1 Daughter.) H&P Review of Systems - Review of Systems: Review Of Systems: See Below General: Reports: Other (dizziness, headache and neck pain ) HEENT: Reports: Vertigo Pulmonary: Reports: No Symptoms Cardiovascular: Reports: No Symptoms Gastrointestinal: Reports: No Symptoms Genitourinary: Reports: No Symptoms Musculoskeletal: Reports: Neck Pain (chronic) Skin: Reports: Other (has compression socks) Psychiatric: Reports: No Symptoms Neurological: Reports: Dizziness, Headache Hematologic/Lymphatic: Reports: No Symptoms Immunologic: Reports: No Symptoms Exam - Exam Exam: See Below - Vital Signs Vital Signs: Last Vital Signs Temp 97.8 F 12/11/20 00:19 Pulse 98 12/11/20 06:15 Resp 16 12/11/20 00:19 BP 116/79 12/11/20 06:15 Pulse Ox 96 12/11/20 00:19 Weight: 280 lb - Exam Quality Assessment: DVT Prophylaxis General: Alert, Oriented, Cooperative HEENT: PERRLA, Hearing Intact, Mucosa Moist & [place], Nares Patent, Normal Nasal Septum, Posterior Pharynx Clear, Conjunctiva Clear, EOMI, EACs Clear, TMs Clear Neck: Supple, Trachea Midline, 2 Lungs: Clear to Auscultation, Normal Respiratory Effort Cardiovascular: Regular Rate, Regular Rhythm, Normal S1, Normal S2 GI/Abdominal Exam: Normal Bowel Sounds, Soft, Non-Tender (Female) Exam: Deferred Rectal (Female) Exam: Deferred Extremities: Non-Tender, Normal Capillary Refill, Pedal Edema, Other (compression stocking bilateral) Peripheral Pulses: 2+: Brachial (L), Brachial (R) Skin: Warm, Dry, Intact Neurological: Reflexes Equal Bilateral, Strength Equal Bilateral, Normal Gait, Normal Speech, Normal Tone Neuro Extensive - Mental Status: Alert, Oriented x3, Normal Mood/Affect, Normal Cognition Neuro Extensive - Motor, Sensory, Reflexes: Motor/Sensory Deficits Psychiatric: Alert, Normal Affect, Normal Mood - Patient Data Lab Results Last 24 hrs: Laboratory Results - last 24 hr 12/10/20 12/10/20 12/11/20 Range/Units 23:58 23:58 00:01 WBC 8.9 (4.5-11.0) K/uL RBC 5.41 (3.30-5.50) M/uL Hgb 15.0 (12.0-15.0) g/dL Hct 48.8 H (36.0-48.0) % MCV 90 (80-98) fL MCH 28 (27-31) pg MCHC 31 L (32-36) % Plt Count 220 (150-400) K/uL Sodium 145 (140-148) mmol/L Potassium 4.5 (3.6-5.2) mmol/L Chloride 106 (100-108) mmol/L Carbon Dioxide 28 (21-32) mmol/L Anion Gap 10.6 (5.0-14.0) mmol/L BUN 25 H (7-18) mg/dL Creatinine 1.1 H (0.6-1.0) mg/dL Est Cr Clr Drug Dosing 35.22 mL/min Estimated GFR (MDRD) 48 L (>60) Glucose 147 H (74-106) mg/dL Calcium 8.8 (8.5-10.1) mg/dL Troponin I < 0.017 (0.000-0.056) ng/mL C-Reactive Protein 1.19 H (0.0-0.3) mg/dL Urine Color (YELLOW) Urine Appearance (CLEAR) Urine pH (5.0-8.0) Ur Specific [place] (1.008-1.030) Urine Protein (NEGATIVE) mg/dL Urine Glucose (UA) (NEGATIVE) mg/dL Urine Ketones (NEGATIVE) mg/dL Urine Occult Blood (NEGATIVE) Urine Nitrite (NEGATIVE) Urine Bilirubin (NEGATIVE) Urine Urobilinogen (0.2-1.0) EU/dL Ur Leukocyte Esterase (NEGATIVE) Urine RBC (0-5) Urine WBC (0-5) Ur Epithelial Cells Amorphous Sediment Urine Bacteria Urine Mucus 12/11/20 Range/Units 00:16 WBC (4.5-11.0) K/uL RBC (3.30-5.50) M/uL Hgb (12.0-15.0) g/dL Hct (36.0-48.0) % MCV (80-98) fL MCH (27-31) pg MCHC (32-36) % Plt Count (150-400) K/uL Sodium (140-148) mmol/L Potassium (3.6-5.2) mmol/L Chloride (100-108) mmol/L Carbon Dioxide (21-32) mmol/L Anion Gap (5.0-14.0) mmol/L BUN (7-18) mg/dL Creatinine (0.6-1.0) mg/dL Est Cr Clr Drug Dosing mL/min Estimated GFR (MDRD) (>60) Glucose (74-106) mg/dL Calcium (8.5-10.1) mg/dL Troponin I (0.000-0.056) ng/mL C-Reactive Protein (0.0-0.3) mg/dL Urine Color Yellow (YELLOW) Urine Appearance Clear (CLEAR) Urine pH 5.5 (5.0-8.0) Ur Specific [place] 1.025 (1.008-1.030) Urine Protein Negative (NEGATIVE) mg/dL Urine Glucose (UA) Negative (NEGATIVE) mg/dL Urine Ketones Negative (NEGATIVE) mg/dL Urine Occult Blood Small H (NEGATIVE) Urine Nitrite Negative (NEGATIVE) Urine Bilirubin Negative (NEGATIVE) Urine Urobilinogen 0.2 (0.2-1.0) EU/dL Ur Leukocyte Esterase Negative (NEGATIVE) Urine RBC 0-5 (0-5) Urine WBC 5-10 H (0-5) Ur Epithelial Cells Few Amorphous Sediment Not seen Urine Bacteria Many Urine Mucus Not seen Result Diagrams: 12/10/20 23:58 12/10/20 23:58 Sepsis Event Note - Evaluation Sepsis Screening Result: No Definite Risk - Focused Exam Vital Signs: Vital Signs Temp Pulse Resp BP Pulse Ox 12/11/20 06:15 98 116/79 12/11/20 05:45 94 112/72 12/11/20 05:15 96 147/95 H 12/11/20 04:40 92 210/113 H 12/11/20 03:47 89 171/95 H 12/11/20 03:37 82 153/86 H 12/11/20 02:47 73 123/71 12/11/20 02:32 84 166/89 H 12/11/20 01:16 74 191/113 H 12/11/20 00:19 97.8 F 63 16 191/110 H 96 12/10/20 22:59 97.9 F 62 16 202/106 H 94 L - Problem List (1) HTN (hypertension) SNOMED Code(s): 86390049 ICD Code: I10 - ESSENTIAL (PRIMARY) HYPERTENSION Status: Acute Priority: High Current Visit: Yes Qualifiers: Hypertension type: essential hypertension Qualified Code(s): I10 - Essential (primary) hypertension (2) Dizziness SNOMED Code(s): 717878792, 169700457 ICD Code: R42 - DIZZINESS AND GIDDINESS Status: Acute Priority: High Current Visit: Yes (3) Neck pain SNOMED Code(s): 76900133 ICD Code: M54.2 - CERVICALGIA Status: Acute Priority: Low Current Visit: Yes (4) Allergy to multiple drugs SNOMED Code(s): 941834966 ICD Code: Z88.9 - ALLERGY STATUS TO UNSPECIFIED DRUG/MEDS/BIOL SUBST Status: Acute Current Visit: Yes (5) CKD (chronic kidney disease), stage III SNOMED Code(s): 409378982 ICD Code: N18.3 - CHRONIC KIDNEY DISEASE, STAGE 3 (MODERATE) * DO NOT USE * Status: Chronic Priority: High Current Visit: Yes Qualifiers: Chronic kidney disease stage 3 subtype: unspecified whether 3a or 3b Qualified Code(s): N18.30 - Chronic kidney disease, stage 3 unspecified Problem List Initiated/Reviewed/Updated: Yes Orders Last 24hrs: Active Orders 24 hr Category Date Time Status Patient Status Manage Transfer [TRANSFER] Routine ADT 12/11/20 06:19 Ordered ESR [SEDIMENTATION RATE MANUAL] [HEME] Stat Lab 12/11/20 06:07 Received Sodium Chloride 0.9% [Saline Flush] Med 12/11/20 00:51 Active 10 ml FLUSH ASDIRECTED PRN Saline Lock Insert [OM.PC] Routine Oth 12/11/20 00:51 Ordered Resuscitation Status Routine Resus Stat 12/11/20 06:21 Ordered Medication Orders Sodium Chloride (Sodium Chloride 0.9% 10 Ml Syringe) 10 ml FLUSH ASDIRECTED PRN PRN Reason: Keep Vein Open Last Admin: 12/11/20 02:02 Dose: 10 ml Documented by: JAQUAN Assessment/Plan Comment:: ASSESSMENT / PLAN: Hypertension This is a 80 year old female presents to the ER for high blood pressure with dizziness. Report was doing well all day, then after supper develops symptoms. She reports took her daily medications of liquid Lasix and metoprolol. While in the ER blood pressure was noted to be 202/106 was given Benadryl 50 mg IM at 12 am, and 25 mg IV at 2am. Morphine 6 mg IM, Hydralazine 25 mg IVP at 1 am. Blood pressure improved to 170 to 110's/ 100-70. She reports symptoms improved. At about 4 am blood pressure was 210/213, was given another dose of Hydralazine 25 mg IVP at 5 am , blood pressure now 116/79. During the course of ER - she did not have any chest pain, shortness of breath. During ER reports - dizziness, headache, neck pain (chronic) labs done is ER , CBC; wbc 8.9, hgb 15.0, hct 48.8, plt 220 BMP Na+145, K+ 4.5, cl 106, anion gap 10.6, bun 25, cr 1.1, glucose 147., normal. Urine with micro; negative, ESR 25 Imaging; CT Head without contrast no acute process is noted. Will plan to admit OBS to treat symptoms and reassess in am. Hypertension with dizziness -monitor and assess for reoccurrence -telemetry -I & O Chronic Kidney disease stage III -monitor I and O -saline lock IV acess Multiple Drug Allergies -It is noted that the patient is allergic to magnesium stearate and is unable to take essentially all pills and capsules. She does well with liquid medications for the most part. -consult with Pharmacy for available medications Neck Pain - chronic -given Morphine IV for pain control Maintenance issues -Orders home meds - Lasix and Metoprolol -Nutrition: 2 gram sodium diet -Gomez catheter not indicated at this time -DVT:Lovenox 30mg subcut daily -GI Prophalaxis - not indicated CODE STATUS: Full Admission status: Admit to Observation -I expect this patient to stay less than 24 hours, not to exceed 96 hours for evaluation and management of this problem. Disposition: home with family Primary care provider - Dr. Gallegos [facility] Hospitalist: Dr. Fuentes - Mortality Measure Prognosis:: Good
[2020-12-11] MEDS ORDERED: Morphine 2 MG/ML SYRINGE IVPUSH PRN (06:57)
[2020-12-11] MEDS: Furosemide Soln 10 MG/ML 60 ML Bottle PO SCH (08:48)
[2020-12-11] MEDS: Enoxaparin 30 MG/0.3 ML Syringe SUBCUT SCH (10:28)
[2020-12-11] MEDS: Metoprolol Tartrate 25 MG Tab PO SCH ×2 (10:28→22:06)
[2020-12-12 08:12] VITALS: PULSE 101
[2020-12-12] MEDS: Metoprolol Tartrate 25 MG Tab PO SCH (08:16)
[2020-12-12] MEDS: Furosemide Soln 10 MG/ML 60 ML Bottle PO SCH (08:17)
[2020-12-12] MEDS: Enoxaparin 30 MG/0.3 ML Syringe SUBCUT SCH (08:17)
[2020-12-12] MEDS ORDERED: cloNIDine 0.1 MG/Day Transdermal Patch TRDERM SCH (10:00)
--- NOTE | 2020-12-12 10:00 | PCM.DCSUM1 ---
Discharge Summary - Hospital Course Brief History: Ms. Menendez is an 80-year-old woman who was admitted to observation status through the emergency department with positional vertigo and uncontrolled hypertension. - Discharge Data Discharge Date: 12/12/20 Discharge Disposition: Home, Self-Care 01 Condition: Stable - Referral to Home Health Primary Care Physician: PCP None - Discharge Diagnosis/Problem(s) (1) Benign positional vertigo SNOMED Code(s): 772892795 ICD Code: H81.10 - BENIGN PAROXYSMAL VERTIGO, UNSPECIFIED EAR Status: Acute Current Visit: Yes (2) Headache SNOMED Code(s): 67630746 ICD Code: R51.9 - HEADACHE, UNSPECIFIED Status: Acute Current Visit: Yes Qualifiers: Headache type: other headache syndrome Qualified Code(s): G44.89 - Other headache syndrome (3) Allergy to multiple drugs SNOMED Code(s): 433252512 ICD Code: Z88.9 - ALLERGY STATUS TO UNSPECIFIED DRUG/MEDS/BIOL SUBST Status: Acute Current Visit: Yes (4) HTN (hypertension) SNOMED Code(s): 14765017 ICD Code: I10 - ESSENTIAL (PRIMARY) HYPERTENSION Status: Acute Priority: High Current Visit: Yes Qualifiers: Hypertension type: essential hypertension Qualified Code(s): I10 - Essential (primary) hypertension - Patient Summary/Data Consults: Consultations 12/11/20 10:05 Consult to Physical Therapy [PT Evaluation and Treatment] [CONS] Routine Please Evaluate and Treat. PT Reason for Consult: positional vertigo Pending Discharge: Yes This query below is only for informational purposes and is not editable. Admission Diagnosis/Problem: Hypertension Hospital Course: Ms. Menendez is a 80 year old female who presented to the ER for high blood pressure with dizziness. She developed symptoms of spinning sensation on the evening of admission. On presentation was noted to have significant hypertension which was managed in the emergency department with hydralazine. Blood pressure did improve with these interventions. Vertigo remained a problem and she was unable to ambulate and was not felt to be safe for discharged home. She does have a history of longstanding hypertension and multiple medication allergies/intolerances. After admission she refused to take her metoprolol, she felt that it was likely that this medication had caused her symptoms of vertigo. I did review with her on 2 occasions that it was unlikely that the medication caused her symptoms. Blood pressure remained fairly well controlled throughout hospitalization. She will be continued on her furosemide. Per her request the metoprolol will be discontinued and she was started on clonidine 0.1 mg patch every 7 days. She was seen and evaluated by physical therapy during hospitalization because of her positional vertigo. By the time of discharge she had no symptoms of vertigo and was ambulating independently with use of a walker. Activity will be as tolerated and she is encouraged to follow a low- sodium diet. Follow-up appointment will be scheduled with her primary care provider within 1 week. - Patient Instructions Diet: Low Sodium Activity: As Tolerated Other/Special Instructions: Please schedule follow-up appointment with primary care provider within 1 week. - Discharge Plan *PRESCRIPTION DRUG MONITORING PROGRAM REVIEWED*: Not Applicable *COPY OF PRESCRIPTION DRUG MONITORING REPORT IN PATIENT ROSANNE: Not Applicable Prescriptions/Med Rec: cloNIDine [Catapres-TTS 1] 0.1 mg TRDERM Q7D #4 patch Home Medications: Home Meds Furosemide [Lasix Oral Soln] 15 mg PO DAILY 01/31/19 [History] cloNIDine [Catapres-TTS 1] 0.1 mg TRDERM Q7D #4 patch 12/12/20 [Rx] - Discharge Summary/Plan Comment DC Time >30 min.: No - Patient Data Vitals - Most Recent: Last Vital Signs Temp 98.2 F 12/12/20 08:00 Pulse 101 H 12/12/20 08:00 Resp 15 12/12/20 08:00 BP 176/97 H 12/12/20 08:00 Pulse Ox 94 L 12/12/20 08:00 Weight - Most Recent: 297 lb 6.457 oz I&O - Last 24 hours: Intake & Output 12/11/20 12/12/20 12/12/20 22:59 06:59 14:59 Intake Total 120 Output Total 550 250 150 Balance -550 -130 -150 Med Orders - Current: Current Medications Clonidine HCl (Clonidine 0.1 Mg/Day Transdermal Patch) 0.1 mg TRDERM Q7D [facility] Enoxaparin Sodium (Enoxaparin 30 Mg/0.3 Ml Syringe) 30 mg SUBCUT DAILY [facility] Last Admin: 12/12/20 08:17 Dose: Not Given Documented by: Furosemide (Furosemide Soln 10 Mg/Ml 60 Ml Bottle) 15 mg PO DAILY [facility] Last Admin: 12/12/20 08:17 Dose: Not Given Documented by: Morphine Sulfate (Morphine 2 Mg/Ml Syringe) 2 mg IVPUSH Q2H PRN PRN Reason: Pain (severe 7-10) Last Admin: 12/12/20 00:26 Dose: 2 mg Documented by: Sodium Chloride (Sodium Chloride 0.9% 10 Ml Syringe) 10 ml FLUSH ASDIRECTED PRN PRN Reason: Keep Vein Open Discontinued Medications Diphenhydramine HCl (Diphenhydramine 50 Mg/Ml Sdv) 50 mg IM ONETIME ONE Stop: 12/10/20 23:51 Last Admin: 12/10/20 23:59 Dose: 50 mg Documented by: Diphenhydramine HCl (Diphenhydramine 50 Mg/Ml Sdv) 25 mg IVPUSH ONETIME ONE Stop: 12/11/20 01:49 Last Admin: 12/11/20 01:59 Dose: 25 mg Documented by: Hydralazine HCl (Hydralazine 20 Mg/Ml Sdv) 25 mg IVPUSH ONETIME ONE Stop: 12/11/20 00:52 Last Admin: 12/11/20 01:07 Dose: 25 mg Documented by: Hydralazine HCl (Hydralazine 20 Mg/Ml Sdv) Confirm Administered Dose 20 mg .ROUTE .STK-MED ONE Stop: 12/11/20 01:05 Last Admin: 12/11/20 01:16 Dose: Not Given Documented by: Hydralazine HCl (Hydralazine 20 Mg/Ml Sdv) 25 mg IVPUSH ONETIME ONE Stop: 12/11/20 04:53 Last Admin: 12/11/20 04:59 Dose: 25 mg Documented by: Ketorolac Tromethamine (Ketorolac 30 Mg/Ml Sdv) 30 mg IVPUSH ONETIME ONE Stop: 12/11/20 01:48 Last Admin: 12/11/20 02:00 Dose: Not Given Documented by: Meclizine HCl (Meclizine 25 Mg Tab) 25 mg PO ONETIME ONE Stop: 12/10/20 23:42 Last Admin: 12/11/20 00:00 Dose: Not Given Documented by: Metoprolol Tartrate (Metoprolol Tartrate 25 Mg Tab) 25 mg PO BID [facility] Last Admin: 12/12/20 08:16 Dose: Not Given Documented by: Morphine Sulfate (Morphine 10 Mg/Ml Syringe) 6 mg IM ONETIME ONE Stop: 12/10/20 23:43 Last Admin: 12/11/20 00:00 Dose: 6 mg Documented by: Prochlorperazine Edisylate (Prochlorperazine 10 Mg/2 Ml Sdv) 10 mg IVPUSH ONETIME ONE Stop: 12/11/20 03:38 Last Admin: 12/11/20 03:43 Dose: 10 mg Documented by: Sodium Chloride (Sodium Chloride 0.9% 10 Ml Syringe) 10 ml FLUSH ASDIRECTED PRN PRN Reason: Keep Vein Open Last Admin: 12/11/20 02:02 Dose: 10 ml Documented by: - Exam General: Reports: Alert, Oriented, Cooperative, No Acute Distress Lungs: Reports: Clear to Auscultation, Normal Respiratory Effort Cardiovascular: Reports: Regular Rate, Regular Rhythm, No Murmurs GI/Abdominal Exam: Soft, Non-Tender, No Organomegaly, No Distention
[2020-12-12 11:09] VITALS: BP 153/99
[2020-12-13] MEDS ORDERED: [UNRECOGNIZED DRUG - REMARK] TOP SCH (09:00)
== END 2020-12-12 11:39 | disposition home or self-care (01) ==
LOC: JP.ED 22:41 → JP.ICU 12-11 06:19
PROVIDERS: ADMIT Hospitalist; ATTEND Hospitalist
DX: H81.10 Benign paroxysmal vertigo, unspecified ear (principal); G44.89 Other headache syndrome; I12.9 Hypertensive chronic kidney disease with stage 1 through stage 4 chronic kidney disease, or unspecified chronic kidney disease; N18.30 Chronic kidney disease, stage 3 unspecified; I25.2 Old myocardial infarction; M54.2 Cervicalgia; E66.9 Obesity, unspecified; Z68.43 Body mass index [BMI] 50.0-59.9, adult; Z88.9 Allergy status to unspecified drugs, medicaments and biological substances; Z88.6 Allergy status to analgesic agent; Z88.1 Allergy status to other antibiotic agents; Z88.8 Allergy status to other drugs, medicaments and biological substances; Z91.09 Other allergy status, other than to drugs and biological substances
CPT/HCPCS: 36415; 70450; 80048; 81001; 84484; 85027; 85651; 86140; 94762; 96372; 96374; 96375; 96376; 97161-GP; 99285-25; A9270-GY; J0360; J0780; J1200; J2270

== ENCOUNTER 2023-03-13 21:35 | Emergency (ER) | payer BC, MEDICARE, OTHER ==
[2023-03-13 22:46] VITALS: BP 169/82; PULSE 60
[2023-03-13 23:35] LABS: APPEARANCE,URINE CLOUDY (CLEAR); BILIRUBIN,URINE NEGATIVE (NEGATIVE); COLOR,URINE YELLOW (YELLOW); GLUCOSE,URINE NEGATIVE (NEGATIVE); KETONES,URINE NEGATIVE (NEGATIVE); LEUKOCYTE ESTERASE,URINE LARGE (NEGATIVE); NITRITE,URINE NEGATIVE (NEGATIVE); OCCULT BLOOD,URINE LARGE (NEGATIVE); PROTEIN,URINE >=300 mg/dL (NEGATIVE); UROBILINOGEN,URINE 0.2 EU/dL (0.2-1.0)
[2023-03-13 23:39] LABS: AMORPHOUS SEDIMENT,URINE NOT SEEN; BACTERIA,URINE MANY; EPITHELIAL CELLS,URINE FEW; MUCUS,URINE NOT SEEN; RBC,URINE 20-30 (0-5); WBC,URINE PACKED (0-5)
[2023-03-13] MEDS ORDERED: cefTRIAXone 1 GM, Lidocaine 1% 2.1 ML IM ONE ×2 (23:47)
== END 2023-03-14 00:39 | disposition home or self-care (01) ==
LOC: JP.ED 21:35
DX: N39.0 Urinary tract infection, site not specified (principal); I10 Essential (primary) hypertension; E66.9 Obesity, unspecified; Z68.41 Body mass index [BMI] 40.0-44.9, adult; Z88.8 Allergy status to other drugs, medicaments and biological substances; Z88.0 Allergy status to penicillin; Z88.6 Allergy status to analgesic agent; Z91.018 Allergy to other foods; Z91.048 Other nonmedicinal substance allergy status; Z88.5 Allergy status to narcotic agent
CPT/HCPCS: 81001; 87086; 87088; 87186; 96372; 99284; J0696

== ENCOUNTER 2024-12-12 14:46 | Emergency (ER) | payer MEDICARE ==
[2024-12-12] MEDS ORDERED: Nitroglycerin 0.1 MG/HR Transdermal Patch TRDERM ONE (15:58)
[2024-12-12 16:23] LABS: BASOPHILS ABSOLUTE AUTO 0.04 K/uL (0.00-0.10); BASOPHILS PERCENT AUTO 0.5 % (0.1-1.3); EOSINOPHILS ABSOLUTE AUTO 0.23 K/uL (0.00-0.40); EOSINOPHILS PERCENT AUTO 2.8 % (0.0-5.4); HEMATOCRIT 52.6 % (34.3-46.0); HEMOGLOBIN 16.6 g/dL (11.2-15.5); IMMATURE GRAN ABSOLUTE AUTO 0.06 K/uL (0.00-0.23); IMMATURE GRAN PERCENT AUTO 0.7 % (0.0-0.7); LYMPHOCYTES PERCENT AUTO 18.5 % (11.4-47.7); MEAN CORPUSCULAR HGB CONC 31.6 g/dL (31.6-35.5); MEAN CORPUSCULAR VOLUME 91.8 fL (81.4-99.0); MONOCYTES ABSOLUTE AUTO 0.95 K/uL (0.20-0.90); MONOCYTES PERCENT AUTO 11.7 % (3.3-12.6); NEUTROPHILS ABSOLUTE AUTO 5.31 K/uL (1.0-7.6); NEUTROPHILS PERCENT AUTO 65.8 % (40.0-78.1); PLATELET COUNT,PLT 162 K/uL (130-375); RED BLOOD CELL COUNT 5.73 M/uL (3.77-5.24); WHITE BLOOD CELL COUNT,WBC 8.1 K/uL (3.2-11.0)
[2024-12-12] MEDS: Sodium Chloride 0.9% 10 ML Syringe FLUSH PRN (16:31)
[2024-12-12] MEDS: Nitroglycerin 2% Oint 1 GM UD Packet TOP ONE (16:31)
[2024-12-12 16:38] LABS: ANION GAP 4.7 mmol/L (5.0-14.0); CALCIUM 9.9 mg/dL (8.5-10.1); EST CRCL DRUG DOSING (CG) 36.16 mL/min; POTASSIUM,K 4.5 mmol/L (3.6-5.2)
[2024-12-12] MEDS: Sodium Chloride 0.9% 1,000 ML IV SCH (18:37)
[2024-12-12] MEDS: LORazepam 2 MG/ML SDV IVPUSH ONE (18:49)
[2024-12-12 19:27] VITALS: BP 171/93; PULSE 71
== END 2024-12-12 19:51 | disposition home or self-care (01) ==
LOC: JP.ED 14:46
DX: R42 Dizziness and giddiness (principal); I10 Essential (primary) hypertension; K21.9 Gastro-esophageal reflux disease without esophagitis; Z88.5 Allergy status to narcotic agent; Z88.8 Allergy status to other drugs, medicaments and biological substances; Z88.0 Allergy status to penicillin; Z91.048 Other nonmedicinal substance allergy status; Z91.018 Allergy to other foods; Z79.899 Other long term (current) drug therapy; Z90.49 Acquired absence of other specified parts of digestive tract
CPT/HCPCS: 36415; 80048; 85025; 96374; 99284; A9270; J2060; J7030